=== PATIENT | male | born 1960 | race African-American/Black ===

== ENCOUNTER 2017-04-21 14:23 | Emergency (ER) | payer MEDICAID ==
[~2017-04-21] VITALS: Ht 172.7 cm; Wt 90.7 kg
--- NOTE | 2017-04-21 15:13 | PHYS DOC ---
Past History Past Medical History: Bipolar, COPD, Hypertension Past Surgical History: No Surgical History Additional Smoking Information: 1 PACK DAILY Alcohol Use: Heavy Drug Use: None Adult General Chief Complaint Chief Complaint: SUICDAL IDEATION HPI HPI Patient is a 56 year old male who presents with suicidal ideation and intentional overdose. Patient states that at approximately 3:00 this morning he took a "handful of Seroquel pills" in an attempt to try to kill himself. Patient states that he took the pills with alcohol. Patient states this is the last thing he remembers until approximately 1 hour prior to arrival. Patient states he awoke in his home at that time. The patient then called EMS to be brought to the emergency department for evaluation for suicidal ideation. Patient denies any symptoms currently. Patient does state that he is still having thoughts of wanting to hurt himself and does not feel safe in his own home. The patient has had history of suicidal ideation and suicide attempt and states that he has required admission to a psychiatric facility but states that this was many years ago. The patient states that he feels he would need to be in an inpatient psychiatric setting at this time. Review of Systems Review of Systems Constitutional: Denies fever or chills [] Eyes: Denies change in visual acuity, redness, or eye pain [] HENT: Denies nasal congestion or sore throat [] Respiratory: Denies cough or shortness of breath [] Cardiovascular: Denies chest pain or edema [] GI: Denies abdominal pain, nausea, vomiting, bloody stools or diarrhea [] : Denies dysuria or hematuria [] Musculoskeletal: Denies back pain or joint pain [] Integument: Denies rash or skin lesions [] Neurologic: Denies headache, focal weakness or sensory changes [] Allergies Allergies Allergies Coded Allergies Type Severity Reaction Last Updated Verified No Known Drug Allergies 04/21/17 No Physical Exam Physical Exam Constitutional: Alert, afebrile, no acute distress. [] HENT: Normocephalic, atraumatic, bilateral external ears normal, oropharynx moist, no oral exudates, nose normal. [] Eyes: PERRLA, EOMI, conjunctiva normal, no discharge. [] Neck: Normal range of motion, no tenderness, supple, no stridor. [] Cardiovascular:Heart rate regular rhythm, no murmur [] Lungs & Thorax: Bilateral breath sounds clear to auscultation [] Abdomen: Bowel sounds normal, soft, no tenderness, no masses, no pulsatile masses. [] Skin: Warm, dry, no erythema, no rash. [] Back: No tenderness, no CVA tenderness. [] Extremities: No tenderness, no cyanosis, no clubbing, ROM intact, no edema. [] Neurologic: Alert and oriented X 3, normal motor function, normal sensory function, no focal deficits noted. [] Psychologic: Affect flat, judgement normal,, voices suicidal ideation, denies homicidal ideation, mood depressed. [] Current Patient Data Vital Signs Vital Signs Date Time Temp Pulse Resp B/P (MAP) Pulse Ox O2 Delivery O2 Flow Rate FiO2 04/21/17 14:23 97.9 115 20 91 Room Air Lab Results Laboratory Tests Test 04/21/17 15:15 04/21/17 15:36 White Blood Count 6.5 x10^3/uL Red Blood Count 4.34 x10^6/uL Hemoglobin 14.5 g/dL Hematocrit 42.2 % Mean Corpuscular Volume 97 fL Mean Corpuscular Hemoglobin 33 pg Mean Corpuscular Hemoglobin Concent 34 g/dL Red Cell Distribution Width 14.9 % Platelet Count 173 x10^3/uL Neutrophils (%) (Auto) 58 % Lymphocytes (%) (Auto) 31 % Monocytes (%) (Auto) 9 % Eosinophils (%) (Auto) 1 % Basophils (%) (Auto) 0 % Neutrophils # (Auto) 3.7 x10^3uL Lymphocytes # (Auto) 2.0 x10^3/uL Monocytes # (Auto) 0.6 x10^3/uL Eosinophils # (Auto) 0.1 x10^3/uL Basophils # (Auto) 0.0 x10^3/uL Sodium Level 140 mmol/L Potassium Level 3.3 mmol/L Chloride Level 104 mmol/L Carbon Dioxide Level 28 mmol/L Anion Gap 8 Blood Urea Nitrogen 13 mg/dL Creatinine 1.2 mg/dL Estimated GFR (Cockcroft-Gault) 63.1 BUN/Creatinine Ratio 11 Glucose Level 102 mg/dL Calcium Level 8.4 mg/dL Magnesium Level 2.0 mg/dL Total Bilirubin 0.7 mg/dL Aspartate Amino Transf (AST/SGOT) 39 U/L Alanine Aminotransferase (ALT/SGPT) 40 U/L Alkaline Phosphatase 54 U/L Total Protein 7.0 g/dL Albumin 3.6 g/dL Albumin/Globulin Ratio 1.1 Lipase 144 U/L Salicylates Level 4.7 mg/dL Salicylate Last Dose Date 04/20/17 Salicylate Last Dose Time 0900 Urine Opiates Screen Pos Urine Methadone Screen Neg Acetaminophen Level < 10 mcg/mL Acetaminophen Last Dose Date 04/20/17 Acetaminophen Last Dose Time 0900 Urine Barbiturates Neg Urine Phencyclidine Screen Neg Urine Amphetamine/Methamphetamine Pos Urine Benzodiazepines Screen Neg Urine Cocaine Screen Pos Urine Cannabinoids Screen Neg Ethyl Alcohol Level < 10 mg/dL Urine Ethyl Alcohol Neg Urine Collection Type Unknown Urine Color Diana Urine Clarity Cloudy Urine pH 6.0 Urine Specific [place] >=1.030 Urine Protein 100 mg/dl Urine Glucose (UA) Neg mg/dL Urine Ketones (Stick) 40 mg/dL Urine Blood Neg Urine Nitrite Neg Urine Bilirubin Neg Urine Urobilinogen Dipstick 1 mg/dL Urine Leukocyte Esterase Neg Urine RBC 0 /HPF Urine WBC Occ /HPF Urine Squamous Epithelial Cells Occ /LPF Urine Bacteria 0 /HPF Urine Mucus Slight /LPF Current Medications Medications (Trade) Dose Ordered Sig/Ian Route PRN Reason Start Time Stop Time Status Last Admin Dose Admin Potassium Chloride (Klor-Con) 40 meq 1X ONCE PO 04/21/17 17:30 04/21/17 17:31 DC 04/21/17 17:11 EKG EKG Interpreted by me: Heart rate 113, sinus tachycardia, normal intervals, normal axis, no acute ST/T-wave abnormalities present [] Radiology/Procedures Radiology/Procedures Not performed [] Course & Med Decision Making Course & Med Decision Making Pertinent Labs and Imaging studies reviewed. (See chart for details) Poison control was contacted and their recommendations were observed in the emergency department. Patient did not display any signs of QT prolongation and magnesium levels were normal last patient did not require magnesium supplementation. The patient was found to have mildly decreased potassium which was replaced orally in the emergency department. The patient maintained suicidal ideation and patient was evaluated by telepsychiatry. Patient was interviewed by Dr. Camejo of psychiatry. He recommended that the patient be placed in an inpatient psychiatric facility as he deems the patient high risk for suicide. At this time the patient is awaiting placement in an inpatient psychiatric facility. Care of patient was signed out to Dr. Olivares at [phone]. Dragon Disclaimer Dragon Disclaimer This chart was dictated in whole or in part using Voice Recognition software in a busy, high-work load, and often noisy Emergency Department environment. It may contain unintended and wholly unrecognized errors or omissions. Departure Departure: Impression: Primary Impression: Suicidal ideation Additional Impression: Intentional overdose of drug in tablet form Problem Qualifiers KAY GRUBBS MD Apr 21, 2017 15:13
[2017-04-21 15:33] LABS: BASO % 0 % (0-3); EOS # 0.1 x10^3/uL (0.0-0.7); EOS % 1 % (0-3); HEMATOCRIT 42.2 % (39.0-53.0); HEMOGLOBIN 14.5 g/dL (13.0-17.5); LYMPH % 31 % (24-48); MEAN CORPUSCULAR HEMOGLOBIN 33 pg (25-35); MEAN CORPUSCULAR HGB CONC 34 g/dL (31-37); MEAN CORPUSCULAR VOLUME 97 fL (79-100); MONO # 0.6 x10^3/uL (0.0-1.1); MONO % 9 % (0-9); NEUT # 3.7 x10^3uL (1.8-7.7); NEUT % 58 % (31-73); PLATELET COUNT 173 x10^3/uL (140-400); RED BLOOD COUNT 4.34 x10^6/uL (4.30-5.70); RED CELL DISTRIBUTION WIDTH 14.9 % (11.5-14.5); WHITE BLOOD COUNT 6.5 x10^3/uL (4.0-11.0)
[2017-04-21 15:50] LABS: ACETAMIN < 10 mcg/mL (10-30); ETHANOL < 10 mg/dL (0-10); SALIC 4.7 mg/dL (2.8-20.0)
[2017-04-21 15:51] LABS: ALBUMIN 3.6 g/dL (3.4-5.0); ALBUMIN/GLOBULIN RATIO 1.1 (1.0-1.7); CALCIUM 8.4 mg/dL (8.5-10.1); CREATININE 1.2 mg/dL (0.7-1.3); GFR 63.1; POTASSIUM 3.3 mmol/L (3.5-5.1); TOTAL BILIRUBIN 0.7 mg/dL (0.2-1.0)
--- NOTE | 2017-04-21 16:01 | EKG ---
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
[2017-04-21 16:02] LABS: AMPHETAMINE/METHAMPHETAMINE POS (NEG); BARBITURATES NEG (NEG); BENZODIAZEPINES NEG (NEG); CANNABINOIDS NEG (NEG); COCAINE POS (NEG); METHADONE NEG (NEG); OPIATES POS (NEG); PHENCYCLIDINE NEG (NEG)
[2017-04-21 16:03] LABS: BACTERIA,URINE 0 /HPF (0-FEW); BILIRUBIN,URINE NEG (NEG); CLARITY,URINE CLOUDY; COLOR,URINE AMBER; GLUCOSE,URINE NEG (NEG); NITRITE,URINE NEG (NEG); RBC,URINE 0 /HPF (0-2); SQUAMOUS EPITHELIAL CELL,UR OCC /LPF; UROBILINOGEN,URINE 1 mg/dL (0.2 mg/dL); WBC,URINE OCC /HPF (0-4)
[2017-04-21] MEDS ORDERED: POTASSIUM CHLORIDE 20 MEQ TABLET.ER. PO ONE (17:30)
[2017-04-21] MEDS ORDERED: diphenhydrAMINE HCL 25 MG CAPSULE PO ONE ×2 (20:13→20:30)
[2017-04-21] MEDS ORDERED: diphenhydrAMINE HCL 50 MG CAPSULE PO ONE (20:15)
[2017-04-21 20:50] VITALS: BP 119/80
== END 2017-04-21 21:56 | disposition short-term general hospital (02) ==
LOC: ER 14:23 → EDBD 14:23 → ER 21:56
DX: T43.592A Poisoning by other antipsychotics and neuroleptics, intentional self-harm, initial encounter (principal); I10 Essential (primary) hypertension; J44.9 Chronic obstructive pulmonary disease, unspecified; F31.9 Bipolar disorder, unspecified; F17.200 Nicotine dependence, unspecified, uncomplicated; F10.10 Alcohol abuse, uncomplicated; Y92.89 Other specified places as the place of occurrence of the external cause
CPT/HCPCS: 36415; 80053; 80307; 81001; 83690; 83735; 85027; 93005; 99285; G0480; Q0163; G0479

== ENCOUNTER 2017-07-02 19:02 | Inpatient (IN) | payer MEDICAID, OTHER ==
[~2017-07-02] VITALS: Ht 172.7 cm; Wt 102.1 kg
--- NOTE | 2017-07-02 20:05 | PHYS DOC ---
Past History Past Medical History: Anxiety, Bipolar, COPD, Depression, Hypertension, Schizophrenia Past Surgical History: No Surgical History Alcohol Use: Heavy Drug Use: Cocaine, Marijuana Adult General Chief Complaint Chief Complaint: SUICDAL IDEATION HPI HPI Patient is a 57 year old male who presents with complaint of suicidal ideation. Patient states that he has been having suicidal thoughts over the past 3 days. The patient states that he started having thoughts of overdosing on lithium today which would be his plan to kill himself. Patient stated that he decided to call the psychiatric hotline instead and he was told come to the emergency department for evaluation. Patient came by private vehicle and checked into the emergency department by himself. Patient states that he has had history of depression and suicidal thoughts. Patient states he was recently hospitalized 1 month ago for the same. The patient denies taking any toxic substances or causing any self injury at this time and patient also denies any homicidal ideation. The patient is seeking help from the emergency department for his suicidal thoughts. Review of Systems Review of Systems Constitutional: Denies fever or chills [] Eyes: Denies change in visual acuity, redness, or eye pain [] HENT: Denies nasal congestion or sore throat [] Respiratory: Denies cough or shortness of breath [] Cardiovascular: Denies chest pain or edema[] GI: Denies abdominal pain, nausea, vomiting, bloody stools or diarrhea [] : Denies dysuria or hematuria [] Musculoskeletal: Denies back pain or joint pain [] Integument: Denies rash or skin lesions [] Neurologic: Denies headache, focal weakness or sensory changes [] Allergies Allergies Allergies Coded Allergies Type Severity Reaction Last Updated Verified No Known Drug Allergies 04/21/17 No Physical Exam Physical Exam Constitutional: Well developed, well nourished, no acute distress, non-toxic appearance. [] HENT: Normocephalic, atraumatic, bilateral external ears normal, oropharynx moist, no oral exudates, nose normal. [] Eyes: PERRLA, EOMI, conjunctiva normal, no discharge. [] Neck: Normal range of motion, no tenderness, supple, no stridor. [] Cardiovascular:Heart rate regular rhythm, no murmur [] Lungs & Thorax: Bilateral breath sounds clear to auscultation [] Abdomen: Bowel sounds normal, soft, no tenderness, no masses, no pulsatile masses. [] Skin: Warm, dry, no erythema, no rash. [] Back: No tenderness, no CVA tenderness. [] Extremities: No tenderness, no cyanosis, no clubbing, ROM intact, no edema. [] Neurologic: Alert and oriented X 3, normal motor function, normal sensory function, no focal deficits noted. [] Psychologic: Affect flat, judgement normal, mood depressed, voices suicidal ideation, negative for homicidal ideation. [] Current Patient Data Vital Signs Vital Signs Date Time Temp Pulse Resp B/P (MAP) Pulse Ox O2 Delivery O2 Flow Rate FiO2 07/02/17 19:02 97.6 96 16 96 Room Air Lab Results Laboratory Tests Test 07/02/17 19:24 07/02/17 19:35 Urine Collection Type Unknown Urine Color Yellow Urine Clarity Clear Urine pH 5.5 Urine Specific [place] 1.025 Urine Protein Neg Urine Glucose (UA) Neg mg/dL Urine Ketones (Stick) Neg mg/dL Urine Blood Trace Urine Nitrite Neg Urine Bilirubin Neg Urine Urobilinogen Dipstick 4 mg/dL Urine Leukocyte Esterase Neg Urine RBC 1-2 /HPF Urine WBC 1-4 /HPF Urine Squamous Epithelial Cells Few /LPF Urine Bacteria 0 /HPF Urine Mucus Mod /LPF Urine Opiates Screen Pos Urine Methadone Screen Neg Urine Barbiturates Neg Urine Phencyclidine Screen Neg Urine Amphetamine/Methamphetamine Neg Urine Benzodiazepines Screen Neg Urine Cocaine Screen Pos Urine Cannabinoids Screen Neg Urine Ethyl Alcohol Neg White Blood Count 7.5 x10^3/uL Red Blood Count 4.04 x10^6/uL Hemoglobin 13.9 g/dL Hematocrit 38.9 % Mean Corpuscular Volume 96 fL Mean Corpuscular Hemoglobin 34 pg Mean Corpuscular Hemoglobin Concent 36 g/dL Red Cell Distribution Width 14.0 % Platelet Count 279 x10^3/uL Neutrophils (%) (Auto) 39 % Lymphocytes (%) (Auto) 50 % Monocytes (%) (Auto) 9 % Eosinophils (%) (Auto) 2 % Basophils (%) (Auto) 1 % Neutrophils # (Auto) 2.9 x10^3uL Lymphocytes # (Auto) 3.7 x10^3/uL Monocytes # (Auto) 0.7 x10^3/uL Eosinophils # (Auto) 0.1 x10^3/uL Basophils # (Auto) 0.0 x10^3/uL Prothrombin Time 9.8 SEC Prothromb Time International Ratio 1.0 Activated Partial Thromboplast Time 24 SEC Sodium Level 140 mmol/L Potassium Level 3.0 mmol/L Chloride Level 105 mmol/L Carbon Dioxide Level 25 mmol/L Anion Gap 10 Blood Urea Nitrogen 14 mg/dL Creatinine 1.2 mg/dL Estimated GFR (Cockcroft-Gault) 76.1 BUN/Creatinine Ratio 12 Glucose Level 110 mg/dL Calcium Level 8.6 mg/dL Magnesium Level 2.2 mg/dL Total Bilirubin 0.3 mg/dL Aspartate Amino Transf (AST/SGOT) 25 U/L Alanine Aminotransferase (ALT/SGPT) 30 U/L Alkaline Phosphatase 57 U/L Total Protein 6.7 g/dL Albumin 3.4 g/dL Albumin/Globulin Ratio 1.0 Lipase 207 U/L Salicylates Level 3.6 mg/dL Salicylate Last Dose Date 07/02/17 Salicylate Last Dose Time 0800 Acetaminophen Level < 2 mcg/mL Acetaminophen Last Dose Date 07/02/17 Acetaminophen Last Dose Time 0800 Ethyl Alcohol Level < 10 mg/dL Current Medications Medications (Trade) Dose Ordered Sig/Ian Route PRN Reason Start Time Stop Time Status Last Admin Dose Admin Potassium Chloride (Klor-Con) 40 meq 1X ONCE PO 07/02/17 21:00 07/02/17 21:01 DC 07/02/17 21:00 EKG EKG Interpreted by me: Heart rate 90, sinus rhythm, normal intervals, normal axis, no acute ST/T-wave abnormalities present[] Radiology/Procedures Radiology/Procedures Not performed.[] Course & Med Decision Making Course & Med Decision Making Pertinent Labs and Imaging studies reviewed. (See chart for details) Patient medically cleared for psychiatric evaluation. The patient was noted to have a low potassium level which was supplemented orally in the emergency department. Patient was evaluated by Dr. Woodruff through tele-psychiatry consult. After her evaluation, she recommended that the patient be an involuntary admission to a psychiatric facility as she is concerned about his current state and risk for completion of suicide. Multiple facilities in the area were contacted but did not have any available beds for the next 8-12 hours. The patient thus will be admitted to the hospital at this time pending transfer and placement in a psychiatric facility. I spoke with Dr. Arriaza who accepted care patient. The patient will be admitted to ICU for continued monitoring. Dragon Disclaimer Dragon Disclaimer This chart was dictated in whole or in part using Voice Recognition software in a busy, high-work load, and often noisy Emergency Department environment. It may contain unintended and wholly unrecognized errors or omissions. Departure Departure: Impression: Primary Impression: Suicidal ideation Disposition: ADMITTED INPATIENT Admitting Physician: Yrn Arriaza Condition: GUARDED Referrals: PCP,NO (PCP) KAY GRUBBS MD Jul 02, 2017 20:05
[2017-07-02 20:08] LABS: BASO % 1 % (0-3); EOS # 0.1 x10^3/uL (0.0-0.7); EOS % 2 % (0-3); HEMATOCRIT 38.9 % (39.0-53.0); HEMOGLOBIN 13.9 g/dL (13.0-17.5); LYMPH # 3.7 x10^3/uL (1.0-4.8); LYMPH % 50 % (24-48); MEAN CORPUSCULAR HEMOGLOBIN 34 pg (25-35); MEAN CORPUSCULAR HGB CONC 36 g/dL (31-37); MEAN CORPUSCULAR VOLUME 96 fL (79-100); MONO # 0.7 x10^3/uL (0.0-1.1); MONO % 9 % (0-9); NEUT # 2.9 x10^3uL (1.8-7.7); NEUT % 39 % (31-73); PLATELET COUNT 279 x10^3/uL (140-400); RED BLOOD COUNT 4.04 x10^6/uL (4.30-5.70); WHITE BLOOD COUNT 7.5 x10^3/uL (4.0-11.0)
[2017-07-02 20:13] LABS: AMPHETAMINE/METHAMPHETAMINE NEG (NEG); BARBITURATES NEG (NEG); BENZODIAZEPINES NEG (NEG); CANNABINOIDS NEG (NEG); COCAINE POS (NEG); METHADONE NEG (NEG); OPIATES POS (NEG); PHENCYCLIDINE NEG (NEG)
[2017-07-02 20:17] LABS: ALBUMIN 3.4 g/dL (3.4-5.0); CALCIUM 8.6 mg/dL (8.5-10.1); CREATININE 1.2 mg/dL (0.7-1.3); GFR 76.1; MAGNESIUM 2.2 mg/dL (1.8-2.4); TOTAL BILIRUBIN 0.3 mg/dL (0.2-1.0); TOTAL PROTEIN 6.7 g/dL (6.4-8.2)
[2017-07-02 20:18] LABS: ACETAMIN < 2 mcg/mL (10-30); ETHANOL < 10 mg/dL (0-10); SALIC 3.6 mg/dL (2.8-20.0)
[2017-07-02 20:40] LABS: BACTERIA,URINE 0 /HPF (0-FEW); BILIRUBIN,URINE NEG (NEG); CLARITY,URINE CLEAR; COLOR,URINE YELLOW; GLUCOSE,URINE NEG (NEG); NITRITE,URINE NEG (NEG); SQUAMOUS EPITHELIAL CELL,UR FEW /LPF; UROBILINOGEN,URINE 4 mg/dL (0.2 mg/dL)
[2017-07-02] MEDS ORDERED: POTASSIUM CHLORIDE 20 MEQ TABLET.ER. PO ONE (21:00)
[2017-07-02 22:17] VITALS: BP 130/82
[2017-07-02] MEDS: QUEtiapine 100 MG TABLET. PO SCH (23:30)
[2017-07-03] VITALS (12 sets, daily range): BP systolic 101–135; BP diastolic 64–88
[2017-07-03] MEDS ORDERED: QUET300T5 PO (05:40)
[2017-07-03] MEDS ORDERED: METO50TA2 PO (05:42)
[2017-07-03] MEDS ORDERED: LITH600C PO (05:42)
[2017-07-03 09:30] LABS: CALCIUM 8.7 mg/dL (8.5-10.1); CREATININE 1.1 mg/dL (0.7-1.3); GFR 84.1; POTASSIUM 3.4 mmol/L (3.5-5.1)
[2017-07-03] MEDS ORDERED: POTASSIUM CHLORIDE 20 MEQ TABLET.ER. PO ONE (12:00)
[2017-07-03] MEDS ORDERED: METOPROLOL TART IMMED RELEASE 50 MG TABLET PO SCH (12:30)
[2017-07-03] MEDS: DOCUSATE SODIUM 100 MG CAPSULE PO SCH ×2 (12:44→20:56)
[2017-07-03] MEDS: NICOTINE 21MG PATCH. TD SCH (12:45)
[2017-07-03] MEDS: LITHIUM CARBONATE 300 MG TABLET PO SCH ×2 (13:47→20:57)
[2017-07-03] MEDS ORDERED: IPRATRPIUM/ALBUTEROL 0.5/2.5MG 3 ML NEBU. NEB SCH (14:00)
[2017-07-03 14:41] LABS: LI < 0.1 mmol/L (0.6-1.2)
--- NOTE | 2017-07-03 15:05 | HP ---
ADMIT DATE: 07/02/2017 REASON FOR ADMISSION: Suicidal ideation. HISTORY OF PRESENT ILLNESS: This is a 57-year-old -[place] male who presented to the Emergency Room with suicidal ideation and plan to overdose on lithium. He has a long history of mental illness with over 10 psychiatric admissions with at least 7 suicide attempts by overdosing, cutting his wrist, walking in traffic. At this time, he states he is going to overdose on lithium. He states he is "tired of living and feeling a lot of pressure." He lives [place] the [facility] [place] in an apartment and does not feel safe there. He states there is a lot going on there and he does not feel safe there. PAST MEDICAL HISTORY: Hypertension; COPD; bipolar disorder; schizoaffective disorder; posttraumatic stress disorder, states from being in the ; anxiety; agitation; constipation; substance abuse, cocaine, marijuana, also has chronic tobacco use disorder and intermittent alcohol use. MEDICATIONS: The patient is somewhat vague about what he takes, but went over the medications myself with him and the discharge medications from the hospitalization at [facility]. He is supposed to be taking Minipress 3 mg at bedtime, but does not take it regularly, this is for nightmares. He has a prescription for tramadol 50 mg every 6 hours, takes it off and on. He has been prescribed by the [facility], Haldol, unknown dose and Ativan 0.5 mg, which he takes off and on. He is supposed to be taking Seroquel 200 mg b.i.d., which he does not take and Seroquel 900 mg at bedtime, which he does take. He is also on albuterol inhaler and Combivent inhaler and also Colace and lithium 600 mg every 12 hours, metoprolol 50 mg b.i.d. SOCIAL HISTORY: He lives alone. He is unmarried. He has no children. He smokes 1 pack per day, drinks 4 times a week, does use cocaine intermittently and has marijuana use in the past. His drug screen was also positive for opiates and he says that this is prescribed by the [facility] [employer]. REVIEW OF SYSTEMS: Positive for occasional constipation. No weight loss. No sore throat. No fever. No problems with urinating. Some anxiety, some agitations. OBJECTIVE: VITAL SIGNS: Blood pressure 134/82, pulse 77, temperature 97.4, pulse ox 98% on room air. Height 68 inches, weight 224.25 pounds. GENERAL: The patient is 57-year-old, in no acute distress. He was calm and cooperative throughout the exam. He speaks in a very low mumbling type tone. His hearing is adequate. HEENT: His pupils were normal. Eyes were normal. Nose is patent. Throat clear. NECK: Supple. LUNGS: Clear. CARDIOVASCULAR: Regular rhythm and rate. ABDOMEN: Soft, nontender. EXTREMITIES: Without edema. NEUROLOGIC: He is alert and oriented, calm and cooperative. Mood is somewhat flat. His affect is somewhat flat and has depressive habitus. LABORATORY DATA: Potassium is 3.0. Normal CBC. Nonfasting glucose is 129. ASSESSMENT: 1. Major depressive disorder. 2. Suicidal ideation with plan. 3. History in the past of multiple suicide attempts and hospitalizations. 4. Schizoaffective disorder. 5. Bipolar disorder. 6. Agitation. 7. Tobacco use disorder. 8. Substance abuse. ____ Urine screen positive for cocaine. 9. Chronic obstructive pulmonary disease. PLAN: Replacing his potassium, added in the medications as best as the history could allow as he was somewhat vague about what he takes when he does not take, will only put in 1 mg of Minipress as he has not been taking this regularly and he has been seen by tele-psych as well as the ____ [facility] who also recommends inpatient. RICH FARRIS DO DR: BRYAN/rachel JOB#: [id number] / [id number]
[2017-07-03] MEDS ORDERED: ASPI-612 PO (15:33)
[2017-07-03] MEDS ORDERED: ALBU8.5H8 INH (15:33)
[2017-07-03] MEDS ORDERED: LITH300C PO (15:33)
[2017-07-03] MEDS ORDERED: LORA0.5T PO (15:33)
[2017-07-03] MEDS ORDERED: HYDR50TA PO (15:33)
[2017-07-03] MEDS ORDERED: HALO5TAB PO (15:33)
[2017-07-03] MEDS ORDERED: BUSP15TA PO (15:33)
[2017-07-03] MEDS ORDERED: ISON300T3 PO (15:33)
[2017-07-03] MEDS ORDERED: ATOR40TA59 PO (15:33)
[2017-07-03] MEDS ORDERED: OLOD4MIS2 IH (16:04)
[2017-07-03] MEDS ORDERED: MOME220A IH (16:04)
[2017-07-03] MEDS ORDERED: PRAZ2CAP2 PO (16:04)
[2017-07-03] MEDS ORDERED: NIFE30TA9 PO (16:04)
[2017-07-03] MEDS ORDERED: ACET325T9 PO (16:04)
[2017-07-03] MEDS ORDERED: SILD50TA PO (16:04)
[2017-07-03] MEDS ORDERED: OMEP20CA9 PO (16:04)
[2017-07-03] MEDS ORDERED: PYRI50TA8 PO (16:04)
[2017-07-03] MEDS ORDERED: TIOT18CA IH (16:04)
[2017-07-03] MEDS ORDERED: ACETAMINOPHEN 325 MG TABLET PO PRN (16:45)
[2017-07-03] MEDS ORDERED: ALBUTEROL SULFATE 8GM INHALER. INH PRN (16:45)
[2017-07-03] MEDS ORDERED: SILDENAFIL CITRATE PO SCH (16:45)
[2017-07-03] MEDS ORDERED: HALOPERIDOL 5 MG TABLET PO PRN (16:45)
[2017-07-03] MEDS ORDERED: LORazepam 0.5 MG TABLET PO PRN (16:45)
[2017-07-03] MEDS ORDERED: hydrOXYzine PAMOATE 25 MG CAPSULE PO PRN (17:00)
[2017-07-03] MEDS ORDERED: ALBUTEROL SULFATE 2.5 MG/3 ML NEBU. NEB PRN (17:00)
[2017-07-03] MEDS: busPIRone 15 MG TABLET. PO SCH (20:56)
[2017-07-03] MEDS: QUEtiapine 100 MG TABLET. PO SCH (20:56)
[2017-07-03] MEDS: ATORVASTATIN CALCIUM 20 MG TABLET PO SCH (20:56)
[2017-07-03] MEDS ORDERED: QUETIAPINE FUMARATE PO SCH (21:00)
[2017-07-03] MEDS ORDERED: PRAZOSIN 1 MG CAPSULE. PO SCH ×2 (21:00)
[2017-07-03] MEDS ORDERED: LITHIUM CARBONATE 300 MG TABLET PO SCH (21:00)
[2017-07-03] MEDS: IPRATRPIUM/ALBUTEROL 0.5/2.5MG 3 ML NEBU. NEB SCH (22:22)
[2017-07-04] MEDS: IPRATRPIUM/ALBUTEROL 0.5/2.5MG 3 ML NEBU. NEB SCH ×4 (05:32→21:36)
[2017-07-04 05:42] VITALS: BP 130/84
[2017-07-04 05:50] LABS: BASO % 1 % (0-3); EOS # 0.1 x10^3/uL (0.0-0.7); EOS % 2 % (0-3); HEMATOCRIT 42.2 % (39.0-53.0); HEMOGLOBIN 14.5 g/dL (13.0-17.5); LYMPH # 3.2 x10^3/uL (1.0-4.8); LYMPH % 52 % (24-48); MEAN CORPUSCULAR HEMOGLOBIN 33 pg (25-35); MEAN CORPUSCULAR HGB CONC 35 g/dL (31-37); MEAN CORPUSCULAR VOLUME 97 fL (79-100); MONO # 0.4 x10^3/uL (0.0-1.1); MONO % 7 % (0-9); NEUT # 2.3 x10^3uL (1.8-7.7); NEUT % 38 % (31-73); PLATELET COUNT 269 x10^3/uL (140-400); RED BLOOD COUNT 4.36 x10^6/uL (4.30-5.70); RED CELL DISTRIBUTION WIDTH 13.7 % (11.5-14.5); WHITE BLOOD COUNT 6.1 x10^3/uL (4.0-11.0)
[2017-07-04 06:00] LABS: ALBUMIN 3.2 g/dL (3.4-5.0); CALCIUM 8.6 mg/dL (8.5-10.1); GFR 93.9; POTASSIUM 4.1 mmol/L (3.5-5.1); TOTAL BILIRUBIN 0.3 mg/dL (0.2-1.0); TOTAL PROTEIN 6.5 g/dL (6.4-8.2)
[2017-07-04] MEDS: PANTOPRAZOLE 40 MG TABLET. PO SCH (08:42)
[2017-07-04] MEDS: DOCUSATE SODIUM 100 MG CAPSULE PO SCH ×2 (08:42→20:20)
[2017-07-04] MEDS: ASPIRIN ENTERIC COATED 81 MG TABLET.DR. PO SCH (08:42)
[2017-07-04] MEDS: busPIRone 15 MG TABLET. PO SCH ×2 (08:42→20:18)
[2017-07-04] MEDS: PYRIDOXINE 50 MG TABLET. PO SCH (08:42)
[2017-07-04] MEDS: NICOTINE 21MG PATCH. TD SCH (08:43)
[2017-07-04] MEDS: LITHIUM CARBONATE 300 MG TABLET PO SCH ×2 (08:43→20:19)
[2017-07-04] MEDS: NON FORMULARY ITEM (Olodaterol HCl (Striverdi Respimat) 2 PUFF) IH SCH (08:54)
[2017-07-04] MEDS ORDERED: NON FORMULARY ITEM (Tiotropium Bromide (Spiriva) 2 PUFF) IH SCH (09:00)
[2017-07-04] MEDS ORDERED: FLUTICASONE 50MCG/NASAL SPRAY 16GM BOTTLE. NS SCH (09:00)
[2017-07-04 10:17] VITALS: BP 134/54
--- NOTE | 2017-07-04 10:40 | EKG ---
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
[2017-07-04 17:18] VITALS: BP 138/87
--- NOTE | 2017-07-04 18:48 | PDOC ---
Exam Avtar Demential Exam: Avtar Note: Please also refer to the separate dictated note~for this date of service dictated separately.~Patient seen individually. Discussed the patient with Nursing staff reviewed the chart.~Reviewed interim history and current functioning. Reviewed vital signs,~Labs/ Radiology~and current medications noted below. Continue current treatment with the changes noted in the dictated addendum note Assessment: Vital Signs: Vital Signs Date Time Temp Pulse Resp B/P (MAP) Pulse Ox O2 Delivery O2 Flow Rate FiO2 07/04/17 17:18 83 18 138/87 (104) 95 Room Air 07/04/17 10:17 98.3 I&O Intake and Output 07/05/17 07:00 Intake Total 1320 ml Balance 1320 ml Intake Oral 1320 ml # Voids 1 Labs: Laboratory Tests Test 07/04/17 05:39 White Blood Count 6.1 x10^3/uL (4.0-11.0) Red Blood Count 4.36 x10^6/uL (4.30-5.70) Hemoglobin 14.5 g/dL (13.0-17.5) Hematocrit 42.2 % (39.0-53.0) Mean Corpuscular Volume 97 fL (79-100) Mean Corpuscular Hemoglobin 33 pg (25-35) Mean Corpuscular Hemoglobin Concent 35 g/dL (31-37) Red Cell Distribution Width 13.7 % (11.5-14.5) Platelet Count 269 x10^3/uL (140-400) Neutrophils (%) (Auto) 38 % (31-73) Lymphocytes (%) (Auto) 52 % (24-48) H Monocytes (%) (Auto) 7 % (0-9) Eosinophils (%) (Auto) 2 % (0-3) Basophils (%) (Auto) 1 % (0-3) Neutrophils # (Auto) 2.3 x10^3uL (1.8-7.7) Lymphocytes # (Auto) 3.2 x10^3/uL (1.0-4.8) Monocytes # (Auto) 0.4 x10^3/uL (0.0-1.1) Eosinophils # (Auto) 0.1 x10^3/uL (0.0-0.7) Basophils # (Auto) 0.0 x10^3/uL (0.0-0.2) Sodium Level 142 mmol/L (136-145) Potassium Level 4.1 mmol/L (3.5-5.1) Chloride Level 109 mmol/L (98-107) H Carbon Dioxide Level 25 mmol/L (21-32) Anion Gap 8 (6-14) Blood Urea Nitrogen 10 mg/dL (8-26) Creatinine 1.0 mg/dL (0.7-1.3) Estimated GFR (Cockcroft-Gault) 93.9 BUN/Creatinine Ratio 10 (6-20) Glucose Level 105 mg/dL (70-99) H Calcium Level 8.6 mg/dL (8.5-10.1) Total Bilirubin 0.3 mg/dL (0.2-1.0) Aspartate Amino Transferase (AST) 17 U/L (15-37) Alanine Aminotransferase (ALT) 25 U/L (16-63) Alkaline Phosphatase 54 U/L (46-116) Total Protein 6.5 g/dL (6.4-8.2) Albumin 3.2 g/dL (3.4-5.0) L Albumin/Globulin Ratio 1.0 (1.0-1.7) Current Medications: Meds: Current Medications Potassium Chloride (Klor-Con) 40 meq 1X ONCE PO Last administered on 21:00; Start 07/02/17 at 21:00; Stop 07/02/17 at 21:01; Status DC Quetiapine Fumarate (SEROquel) 900 mg HS PO Last administered on 07/03/17 20: 56; Start 07/03/17 at 00:00 Potassium Chloride (Klor-Con) 40 meq 1X ONCE PO Last administered on 12:11; Start 07/03/17 at 12:00; Stop 07/03/17 at 12:01; Status DC Metoprolol Tartrate (Lopressor) 50 mg BID PO Last administered on 07/03/17 12 :44; Start 07/03/17 at 12:30; Stop 07/03/17 at 16:37; Status DC [place] Carbonate 300 mg BID PO Last administered on 07/04/17 08:43; Start 07/03/17 at 12:30 Non-Formulary Medication 3 tab QHS PO ; Start 07/03/17 at 21:00; Status UNV Nicotine (Nicoderm Cq 21mg) 1 patch DAILY TD Last administered on 07/04/17 08 :43; Start 07/03/17 at 12:30 Albuterol/ Ipratropium (Duoneb) 3 ml TID NEB Last administered on 07/03/17 15 :26; Start 07/03/17 at 14:00; Stop 07/03/17 at 16:58; Status DC Prazosin HCl (Minipress) 1 mg HS PO ; Start 07/03/17 at 21:00; Stop 07/03/17 at 21:00; Status DC Docusate Sodium (Colace) 100 mg BID PO Last administered on 07/04/17 08:42; Start 07/03/17 at 12:30 Acetaminophen (Tylenol) 650 mg PRN Q8HRS PRN PO PAIN / TEMP; Start 07/03/17 at 16:45 Albuterol Sulfate (Ventolin Hfa) 2 puff PRN Q6HRS PRN INH SHORTNESS OF BREATH; Start 07/03/17 at 16:45; Stop 07/03/17 at 16:56; Status DC Aspirin (Aspirin Enteric Coated) 81 mg DAILY PO Last administered on 08:42; Start 07/04/17 at 09:00 Buspirone HCl (Buspar) 15 mg BID PO Last administered on 07/04/17 08:42; Start 07/03/17 at 21:00 Haloperidol (Haldol) 5 mg PRN Q6HRS PRN PO AGITATION; Start 07/03/17 at 16:45 Lorazepam (Ativan) 0.5 mg PRN BID PRN PO ANXIETY / AGITATION; Start 07/03/17 at 16:45 Pyridoxine HCl (Vitamin B-6) 50 mg DAILY PO Last administered on 07/04/17 08: 42; Start 07/04/17 at 09:00 Atorvastatin Calcium (Lipitor) 20 mg QHS PO Last administered on 07/03/17 20: 56; Start 07/03/17 at 21:00 Hydroxyzine Pamoate (Vistaril) 50 mg PRN Q4HRS PRN PO CONGESTION; Start at 17:00 [place] Carbonate 300 mg BID PO ; Start 07/03/17 at 21:00; Stop 07/03/17 at 21 :00; Status DC Fluticasone Propionate (Flonase) 2 spray DAILY NS Last administered on 08:43; Start 07/04/17 at 09:00; Stop 07/04/17 at 15:58; Status DC Nifedipine (Procardia Xl) 30 mg DAILY PO Last administered on 07/04/17 08:43 ; Start 07/04/17 at 09:00 Non-Formulary Medication 2 puff DAILY IH ; Start 07/04/17 at 09:00; Status UNV Pantoprazole Sodium (Protonix) 40 mg DAILYAC PO Last administered on 08:42; Start 07/04/17 at 07:30 Prazosin HCl (Minipress) 2 mg QHS PO Last administered on 07/03/17 20:56; Start 07/03/17 at 21:00; Stop 07/04/17 at 18:47; Status DC Non-Formulary Medication 0.5 tab UD PO ; Start 07/03/17 at 16:45; Stop at 07:13; Status DC Non-Formulary Medication 2 puff DAILY IH ; Start 07/04/17 at 09:00; Stop 07/04 at 09:00; Status DC Albuterol Sulfate (Ventolin) 2.5 mg PRN Q6HRS PRN NEB SHORTNESS OF BREATH; Start 07/03/17 at 17:00 Albuterol/ Ipratropium (Duoneb) 3 ml RTQID NEB Last administered on 07/04/17 16:37; Start 07/03/17 at 20:00 Fluticasone Propionate (Flonase) 2 spray DAILY NS ; Start 07/04/17 at 15:58 Prazosin HCl (Minipress) 4 mg QHS PO ; Start 07/04/17 at 21:00; Status UNV Active Scripts Active Reported Tylenol (Acetaminophen) 325 Mg Tablet 2 Tab PO PRN Q8HRS PRN LAST DOSE GIVEN: DATE: TIME: NEXT DOSE DUE: DATE: TIME: Spiriva (Tiotropium [place]) 18 Mcg Cap.w.dev 2 Puff IH DAILY LAST DOSE GIVEN: DATE: TIME: NEXT DOSE DUE: DATE: TIME: Viagra (Sildenafil Citrate) 50 Mg Tablet 0.5 Tab PO UD LAST DOSE GIVEN: DATE: TIME: NEXT DOSE DUE: DATE: TIME: Pyridoxine Hcl 50 Mg Tablet 50 Mg PO DAILY LAST DOSE GIVEN: DATE: TIME: NEXT DOSE DUE: DATE: TIME: Prazosin Hcl 2 Mg Capsule 2 Cap PO QHS LAST DOSE GIVEN: DATE: TIME: NEXT DOSE DUE: DATE: TIME: Omeprazole 20 Mg Capsule.dr 1 Cap PO DAILY LAST DOSE GIVEN: DATE: TIME: NEXT DOSE DUE: DATE: TIME: [place] Respimat (Olodaterol HCl) 4 Gm Mist.inhal 2 Puff IH DAILY LAST DOSE GIVEN: DATE: TIME: NEXT DOSE DUE: DATE: TIME: Nifedipine Er (Nifedipine) 30 Mg Tablet.er 1 Tab PO DAILY LAST DOSE GIVEN: DATE: TIME: NEXT DOSE DUE: DATE: TIME: Asmanex (Mometasone Furoate) 220 Mcg Aer.pow.ba 1 Puff IH BID LAST DOSE GIVEN: DATE: TIME: NEXT DOSE DUE: DATE: TIME: Lorazepam 0.5 Mg Tablet 1 Tab PO PRN BID PRN LAST DOSE GIVEN: DATE: TIME: NEXT DOSE DUE: DATE: TIME: Isoniazid 300 Mg Tablet 300 Mg PO DAILY LAST DOSE GIVEN: DATE: TIME: NEXT DOSE DUE: DATE: TIME: Hydroxyzine Hcl 50 Mg Tablet 50 Mg PO PRN Q4HRS PRN LAST DOSE GIVEN: DATE: TIME: NEXT DOSE DUE: DATE: TIME: Haloperidol 5 Mg Tablet 5 Mg PO PRN Q6HRS PRN LAST DOSE GIVEN: DATE: TIME: NEXT DOSE DUE: DATE: TIME: Buspirone Hcl 15 Mg Tablet 1 Tab PO BID LAST DOSE GIVEN: DATE: TIME: NEXT DOSE DUE: DATE: TIME: Atorvastatin Calcium 40 Mg Tablet 0.5 Tab PO QHS LAST DOSE GIVEN: DATE: TIME: NEXT DOSE DUE: DATE: TIME: Aspirin Ec (Aspirin) 81 Mg Tablet.dr 1 Tab PO DAILY LAST DOSE GIVEN: DATE: TIME: NEXT DOSE DUE: DATE: TIME: Proair Hfa Inhaler (Albuterol Sulfate) 8.5 Gm Hfa.aer.ad 2 Puff INH PRN Q6HRS PRN LAST DOSE GIVEN: DATE: TIME: NEXT DOSE DUE: DATE: TIME: [place] Carbonate 300 Mg Capsule 1 Cap PO BID LAST DOSE GIVEN: DATE: TIME: NEXT DOSE DUE: DATE: TIME: Metoprolol Tartrate 50 Mg Tablet 0.5 Tab PO BID LAST DOSE GIVEN: DATE: TIME: NEXT DOSE DUE: DATE: TIME: Seroquel (Quetiapine Fumarate) 300 Mg Tablet 3 Tab PO QHS LAST DOSE GIVEN: DATE: TIME: NEXT DOSE DUE: DATE: TIME: Diagnosis: Problems: (1) Schizoaffective disorder, chronic condition with acute exacerbation (2) Impulse control disorder (3) Suicidal ideation (4) Bipolar affective, mixed, sev w/ psych (5) Anxiety disorder CLAUDIA FALL MD Jul 04, 2017 18:48
[2017-07-04 19:55] VITALS: BP 127/88
[2017-07-04] MEDS: QUEtiapine 100 MG TABLET. PO SCH (20:18)
[2017-07-04] MEDS: ATORVASTATIN CALCIUM 20 MG TABLET PO SCH (20:19)
[2017-07-04] MEDS: PRAZOSIN 1 MG CAPSULE. PO SCH (20:19)
[2017-07-04 20:24] VITALS: BP 138/90
[2017-07-04 22:57] VITALS: BP 134/54
--- NOTE | 2017-07-05 01:33 | PN ---
DATE: PROBLEMS: 1. Schizoaffective disorder. 2. Suicidal ideation with plan. 3. Hypertension. 4. History of multiple suicide attempts and hospitalizations in the past. 5. Bipolar disorder. 6. Agitation. 7. Tobacco use disorder. 8. Substance abuse, positive for cocaine. 9. COPD. 10. Hypokalemia, it is resolved. A 57-year-old who was admitted with suicidal ideation. So far no beds are available at the places we have queried. We are still waiting and he still desires to be admitted. He is taking all his medications as directed and remains one on one observation. OBJECTIVE: VITAL SIGNS: Blood pressure 134/54, pulse 70, respirations 19, pulse ox 97% on room air, temperature 98.3. Labs fairly unremarkable today. CBC is normal. PLAN: Await bed placement. RICH FARRIS DO DR: BRYAN/rachel JOB#: [id number] / [id number]
[2017-07-05 05:39] VITALS: BP 121/77
[2017-07-05 06:40] LABS: BASO % 1 % (0-3); EOS # 0.1 x10^3/uL (0.0-0.7); EOS % 2 % (0-3); HEMATOCRIT 41.7 % (39.0-53.0); HEMOGLOBIN 14.5 g/dL (13.0-17.5); LYMPH # 2.8 x10^3/uL (1.0-4.8); LYMPH % 40 % (24-48); MEAN CORPUSCULAR HEMOGLOBIN 34 pg (25-35); MEAN CORPUSCULAR HGB CONC 35 g/dL (31-37); MEAN CORPUSCULAR VOLUME 97 fL (79-100); MONO # 0.6 x10^3/uL (0.0-1.1); MONO % 8 % (0-9); NEUT # 3.4 x10^3uL (1.8-7.7); NEUT % 50 % (31-73); PLATELET COUNT 281 x10^3/uL (140-400); RED BLOOD COUNT 4.32 x10^6/uL (4.30-5.70); RED CELL DISTRIBUTION WIDTH 13.6 % (11.5-14.5); WHITE BLOOD COUNT 6.9 x10^3/uL (4.0-11.0)
[2017-07-05 06:47] LABS: CALCIUM 8.6 mg/dL (8.5-10.1); GFR 93.9; POTASSIUM 3.8 mmol/L (3.5-5.1)
[2017-07-05] MEDS: IPRATRPIUM/ALBUTEROL 0.5/2.5MG 3 ML NEBU. NEB SCH ×4 (08:00→20:00)
[2017-07-05] MEDS: NON FORMULARY ITEM (Olodaterol HCl (Striverdi Respimat) 2 PUFF) IH SCH (09:00)
[2017-07-05] MEDS: DOCUSATE SODIUM 100 MG CAPSULE PO SCH ×2 (09:18→20:07)
[2017-07-05] MEDS: LITHIUM CARBONATE 300 MG TABLET PO SCH ×2 (09:18→20:07)
[2017-07-05] MEDS: PANTOPRAZOLE 40 MG TABLET. PO SCH (09:18)
[2017-07-05] MEDS: busPIRone 15 MG TABLET. PO SCH ×2 (09:18→20:07)
[2017-07-05] MEDS: ASPIRIN ENTERIC COATED 81 MG TABLET.DR. PO SCH (09:18)
[2017-07-05] MEDS: FLUTICASONE 50MCG/NASAL SPRAY 16GM BOTTLE. NS SCH (09:19)
[2017-07-05] MEDS: PYRIDOXINE 50 MG TABLET. PO SCH (09:19)
[2017-07-05] MEDS: NICOTINE 21MG PATCH. TD SCH (09:21)
[2017-07-05 10:54] VITALS: BP 134/89
[2017-07-05 13:42] LABS: LI 0.3 mmol/L (0.6-1.2)
[2017-07-05 15:49] VITALS: BP 140/89
[2017-07-05 18:00] VITALS: BP 139/83
--- NOTE | 2017-07-05 19:14 | PDOC ---
Exam Avtar Demential Exam: Avtar Note: Please also refer to the separate dictated note~for this date of service dictated separately.~Patient seen individually. Discussed the patient with Nursing staff reviewed the chart.~Reviewed interim history and current functioning. Reviewed vital signs,~Labs/ Radiology~and current medications noted below. Continue current treatment with the changes noted in the dictated addendum note Assessment: Vital Signs: Vital Signs Date Time Temp Pulse Resp B/P (MAP) Pulse Ox O2 Delivery O2 Flow Rate FiO2 07/05/17 18:00 98.0 89 18 139/83 (101) 95 Room Air I&O Intake and Output 07/06/17 07:00 Intake Total 2260 ml Balance 2260 ml Intake Oral 2260 ml # Voids 3 # Bowel Movements 1 Labs: Laboratory Tests Test 07/05/17 05:45 07/05/17 06:30 [place] Level 0.3 mmol/L (0.6-1.2) L [place] Last Dose Date 07/04/17 [place] Last Dose Time 2100 White Blood Count 6.9 x10^3/uL (4.0-11.0) Red Blood Count 4.32 x10^6/uL (4.30-5.70) Hemoglobin 14.5 g/dL (13.0-17.5) Hematocrit 41.7 % (39.0-53.0) Mean Corpuscular Volume 97 fL (79-100) Mean Corpuscular Hemoglobin 34 pg (25-35) Mean Corpuscular Hemoglobin Concent 35 g/dL (31-37) Red Cell Distribution Width 13.6 % (11.5-14.5) Platelet Count 281 x10^3/uL (140-400) Neutrophils (%) (Auto) 50 % (31-73) Lymphocytes (%) (Auto) 40 % (24-48) Monocytes (%) (Auto) 8 % (0-9) Eosinophils (%) (Auto) 2 % (0-3) Basophils (%) (Auto) 1 % (0-3) Neutrophils # (Auto) 3.4 x10^3uL (1.8-7.7) Lymphocytes # (Auto) 2.8 x10^3/uL (1.0-4.8) Monocytes # (Auto) 0.6 x10^3/uL (0.0-1.1) Eosinophils # (Auto) 0.1 x10^3/uL (0.0-0.7) Basophils # (Auto) 0.0 x10^3/uL (0.0-0.2) Sodium Level 142 mmol/L (136-145) Potassium Level 3.8 mmol/L (3.5-5.1) Chloride Level 109 mmol/L (98-107) H Carbon Dioxide Level 26 mmol/L (21-32) Anion Gap 7 (6-14) Blood Urea Nitrogen 8 mg/dL (8-26) Creatinine 1.0 mg/dL (0.7-1.3) Estimated GFR (Cockcroft-Gault) 93.9 Glucose Level 110 mg/dL (70-99) H Calcium Level 8.6 mg/dL (8.5-10.1) Current Medications: Meds: Current Medications Potassium Chloride (Klor-Con) 40 meq 1X ONCE PO Last administered on 21:00; Start 07/02/17 at 21:00; Stop 07/02/17 at 21:01; Status DC Quetiapine Fumarate (SEROquel) 900 mg HS PO Last administered on 07/04/17 20: 18; Start 07/03/17 at 00:00 Potassium Chloride (Klor-Con) 40 meq 1X ONCE PO Last administered on 12:11; Start 07/03/17 at 12:00; Stop 07/03/17 at 12:01; Status DC Metoprolol Tartrate (Lopressor) 50 mg BID PO Last administered on 07/03/17 12 :44; Start 07/03/17 at 12:30; Stop 07/03/17 at 16:37; Status DC [place] Carbonate 300 mg BID PO Last administered on 07/05/17 09:18; Start 07/03/17 at 12:30 Non-Formulary Medication 3 tab QHS PO ; Start 07/03/17 at 21:00; Status UNV Nicotine (Nicoderm Cq 21mg) 1 patch DAILY TD Last administered on 07/05/17 09 :21; Start 07/03/17 at 12:30 Albuterol/ Ipratropium (Duoneb) 3 ml TID NEB Last administered on 07/03/17 15 :26; Start 07/03/17 at 14:00; Stop 07/03/17 at 16:58; Status DC Prazosin HCl (Minipress) 1 mg HS PO ; Start 07/03/17 at 21:00; Stop 07/03/17 at 21:00; Status DC Docusate Sodium (Colace) 100 mg BID PO Last administered on 07/05/17 09:18; Start 07/03/17 at 12:30 Acetaminophen (Tylenol) 650 mg PRN Q8HRS PRN PO PAIN / TEMP; Start 07/03/17 at 16:45 Albuterol Sulfate (Ventolin Hfa) 2 puff PRN Q6HRS PRN INH SHORTNESS OF BREATH; Start 07/03/17 at 16:45; Stop 07/03/17 at 16:56; Status DC Aspirin (Aspirin Enteric Coated) 81 mg DAILY PO Last administered on 09:18; Start 07/04/17 at 09:00 Buspirone HCl (Buspar) 15 mg BID PO Last administered on 07/05/17 09:18; Start 07/03/17 at 21:00 Haloperidol (Haldol) 5 mg PRN Q6HRS PRN PO AGITATION; Start 07/03/17 at 16:45 Lorazepam (Ativan) 0.5 mg PRN BID PRN PO ANXIETY / AGITATION Last administered on 07/05/17 10:24; Start 07/03/17 at 16:45 Pyridoxine HCl (Vitamin B-6) 50 mg DAILY PO Last administered on 07/05/17 09: 19; Start 07/04/17 at 09:00 Atorvastatin Calcium (Lipitor) 20 mg QHS PO Last administered on 07/04/17 20: 19; Start 07/03/17 at 21:00 Hydroxyzine Pamoate (Vistaril) 50 mg PRN Q4HRS PRN PO CONGESTION; Start at 17:00 [place] Carbonate 300 mg BID PO ; Start 07/03/17 at 21:00; Stop 07/03/17 at 21 :00; Status DC Fluticasone Propionate (Flonase) 2 spray DAILY NS Last administered on 08:43; Start 07/04/17 at 09:00; Stop 07/04/17 at 15:58; Status DC Nifedipine (Procardia Xl) 30 mg DAILY PO Last administered on 07/05/17 09:18 ; Start 07/04/17 at 09:00 Non-Formulary Medication 2 puff DAILY IH ; Start 07/04/17 at 09:00; Status UNV Pantoprazole Sodium (Protonix) 40 mg DAILYAC PO Last administered on 09:18; Start 07/04/17 at 07:30 Prazosin HCl (Minipress) 2 mg QHS PO Last administered on 07/03/17 20:56; Start 07/03/17 at 21:00; Stop 07/04/17 at 18:47; Status DC Non-Formulary Medication 0.5 tab UD PO ; Start 07/03/17 at 16:45; Stop at 07:13; Status DC Non-Formulary Medication 2 puff DAILY IH ; Start 07/04/17 at 09:00; Stop 07/04 at 09:00; Status DC Albuterol Sulfate (Ventolin) 2.5 mg PRN Q6HRS PRN NEB SHORTNESS OF BREATH; Start 07/03/17 at 17:00 Albuterol/ Ipratropium (Duoneb) 3 ml RTQID NEB Last administered on 07/05/17 16:04; Start 07/03/17 at 20:00 Fluticasone Propionate (Flonase) 2 spray DAILY NS Last administered on 09:19; Start 07/04/17 at 15:58 Prazosin HCl (Minipress) 4 mg QHS PO Last administered on 07/04/17 20:19; Start 07/04/17 at 21:00 Active Scripts Active Reported Tylenol (Acetaminophen) 325 Mg Tablet 2 Tab PO PRN Q8HRS PRN LAST DOSE GIVEN: DATE: TIME: NEXT DOSE DUE: DATE: TIME: Spiriva (Tiotropium [place]) 18 Mcg Cap.w.dev 2 Puff IH DAILY LAST DOSE GIVEN: DATE: TIME: NEXT DOSE DUE: DATE: TIME: Viagra (Sildenafil Citrate) 50 Mg Tablet 0.5 Tab PO UD LAST DOSE GIVEN: DATE: TIME: NEXT DOSE DUE: DATE: TIME: Pyridoxine Hcl 50 Mg Tablet 50 Mg PO DAILY LAST DOSE GIVEN: DATE: TIME: NEXT DOSE DUE: DATE: TIME: Prazosin Hcl 2 Mg Capsule 2 Cap PO QHS LAST DOSE GIVEN: DATE: TIME: NEXT DOSE DUE: DATE: TIME: Omeprazole 20 Mg Capsule.dr 1 Cap PO DAILY LAST DOSE GIVEN: DATE: TIME: NEXT DOSE DUE: DATE: TIME: [place] Respimat (Olodaterol HCl) 4 Gm Mist.inhal 2 Puff IH DAILY LAST DOSE GIVEN: DATE: TIME: NEXT DOSE DUE: DATE: TIME: Nifedipine Er (Nifedipine) 30 Mg Tablet.er 1 Tab PO DAILY LAST DOSE GIVEN: DATE: TIME: NEXT DOSE DUE: DATE: TIME: Asmanex (Mometasone Furoate) 220 Mcg Aer.pow.ba 1 Puff IH BID LAST DOSE GIVEN: DATE: TIME: NEXT DOSE DUE: DATE: TIME: Lorazepam 0.5 Mg Tablet 1 Tab PO PRN BID PRN LAST DOSE GIVEN: DATE: TIME: NEXT DOSE DUE: DATE: TIME: Isoniazid 300 Mg Tablet 300 Mg PO DAILY LAST DOSE GIVEN: DATE: TIME: NEXT DOSE DUE: DATE: TIME: Hydroxyzine Hcl 50 Mg Tablet 50 Mg PO PRN Q4HRS PRN LAST DOSE GIVEN: DATE: TIME: NEXT DOSE DUE: DATE: TIME: Haloperidol 5 Mg Tablet 5 Mg PO PRN Q6HRS PRN LAST DOSE GIVEN: DATE: TIME: NEXT DOSE DUE: DATE: TIME: Buspirone Hcl 15 Mg Tablet 1 Tab PO BID LAST DOSE GIVEN: DATE: TIME: NEXT DOSE DUE: DATE: TIME: Atorvastatin Calcium 40 Mg Tablet 0.5 Tab PO QHS LAST DOSE GIVEN: DATE: TIME: NEXT DOSE DUE: DATE: TIME: Aspirin Ec (Aspirin) 81 Mg Tablet.dr 1 Tab PO DAILY LAST DOSE GIVEN: DATE: TIME: NEXT DOSE DUE: DATE: TIME: Proair Hfa Inhaler (Albuterol Sulfate) 8.5 Gm Hfa.aer.ad 2 Puff INH PRN Q6HRS PRN LAST DOSE GIVEN: DATE: TIME: NEXT DOSE DUE: DATE: TIME: [place] Carbonate 300 Mg Capsule 1 Cap PO BID LAST DOSE GIVEN: DATE: TIME: NEXT DOSE DUE: DATE: TIME: Metoprolol Tartrate 50 Mg Tablet 0.5 Tab PO BID LAST DOSE GIVEN: DATE: TIME: NEXT DOSE DUE: DATE: TIME: Seroquel (Quetiapine Fumarate) 300 Mg Tablet 3 Tab PO QHS LAST DOSE GIVEN: DATE: TIME: NEXT DOSE DUE: DATE: TIME: Diagnosis: Problems: (1) Schizoaffective disorder, chronic condition with acute exacerbation (2) Impulse control disorder (3) Bipolar affective, mixed, sev w/ psych (4) Suicidal ideation (5) Anxiety disorder CLAUDIA FALL MD Jul 05, 2017 19:14
[2017-07-05] MEDS: ATORVASTATIN CALCIUM 20 MG TABLET PO SCH (20:07)
[2017-07-05] MEDS: QUEtiapine 100 MG TABLET. PO SCH (20:07)
[2017-07-05] MEDS: PRAZOSIN 1 MG CAPSULE. PO SCH (20:14)
[2017-07-05] MEDS ORDERED: HALOPERIDOL 2 MG TABLET PO SCH (21:00)
[2017-07-05 23:20] VITALS: BP 138/82
--- NOTE | 2017-07-06 02:05 | CONS ---
DATE OF CONSULTATION: 07/04/2017 This late entry 07/04/2017 covers elements not covered in my initial note of 07/04/2017. I met with the patient the evening of 07/04/2017. Discussed with nursing staff, reviewed the chart. IDENTIFYING DATA: The patient is a 57-year-old Afro-[place] male seen in bed 125 on [facility] for psychiatric consult requested by Dr. Perez on account of the patient's suicidal ideation within the context of his diagnosis of bipolar disorder, depressed. CHIEF COMPLAINT: "Yes, I thought of ending my life. I have hallucinations and sometimes voices tell me to hurt myself or someone else." HISTORY OF PRESENT ILLNESS: The patient has a history of bipolar disorder followed by Dr. Frankel, psychiatrist at the [facility]. He resides [place] and at the time of this admission was positive for cocaine on the drug screen. The patient denies using any drugs recently, but admits that some of his friends could have slipped something into his drugs. He admits to worsening of his bipolar symptoms recently with increased psychotic symptoms, suicidal ideation, no attempt or intent. He also states he hears voices telling him to hurt others. In the past, he has been diagnosed additionally with PTSD. PAST PSYCHIATRIC HISTORY: As noted above. PAST MEDICAL HISTORY: Hyperlipidemia. FAMILY HISTORY: Noncontributory. SOCIAL HISTORY: Positive for drug abuse in the past. Denies any recent usage, but drug screen results with cocaine noted above. He states he is the only living member of his family. Uncles, aunts, parents, siblings have all and he feels quite a void in his life from all of this. Nevertheless, he has the support of the [place] system and lives on the grounds in an apartment. MENTAL STATUS EXAM: The patient was seen individually evening of 07/04/2017, reasonably oriented and cooperative. Speech coherent, abstraction fair, computation impaired, attention span short, language function intact, admits to intermittent hallucinations, appears somewhat paranoid, depressed. Denies active suicidal or homicidal ideation. Attention span short. Language function intact. LABORATORY DATA: Reviewed. IMPRESSION: Bipolar 1 disorder, mixed with psychotic features; anxiety disorder, unspecified; history of cocaine abuse. Rest as above. PLAN: The patient is currently on lithium carbonate 300 mg twice a day, Haldol 5 mg q. 6 hours p.r.n. psychosis, BuSpar 15 mg twice a day, Ativan 0.5 mg twice a day p.r.n., prazosin 2 mg at bedtime, Seroquel 900 mg at bedtime, and lithium level was 0.1, probably consequent to noncompliance. He has been back on the regular dosage of lithium. We will check another level morning of 07/05/2017, increase prazosin from 2 mg at bedtime to 4 mg at bedtime on account of his ongoing insomnia, consider adding scheduled Haldol if psychotic symptoms persist and the lithium level is therapeutic. The patient would preferably need inpatient psychiatric care and he is being screened by the [facility], they are making arrangements for a transfer. Dr. Perez, thank you for the opportunity to participate in your patient's care. We will follow with you. MAN Danni FALL MD DR: [place]/rachel JOB#: [id number] / [id number]
[2017-07-06] MEDS: IPRATRPIUM/ALBUTEROL 0.5/2.5MG 3 ML NEBU. NEB SCH ×4 (05:00→20:29)
[2017-07-06 06:17] VITALS: BP 133/86
[2017-07-06] MEDS: NON FORMULARY ITEM (Olodaterol HCl (Striverdi Respimat) 2 PUFF) IH SCH (08:49)
[2017-07-06] MEDS: busPIRone 15 MG TABLET. PO SCH ×2 (08:54→20:50)
[2017-07-06] MEDS: FLUTICASONE 50MCG/NASAL SPRAY 16GM BOTTLE. NS SCH (08:54)
[2017-07-06] MEDS: DOCUSATE SODIUM 100 MG CAPSULE PO SCH ×2 (08:54→20:50)
[2017-07-06] MEDS: PANTOPRAZOLE 40 MG TABLET. PO SCH (08:54)
[2017-07-06] MEDS: LITHIUM CARBONATE 300 MG TABLET PO SCH ×2 (08:55→20:50)
[2017-07-06] MEDS: ASPIRIN ENTERIC COATED 81 MG TABLET.DR. PO SCH (08:55)
[2017-07-06] MEDS: NICOTINE 21MG PATCH. TD SCH (08:55)
[2017-07-06] MEDS: PYRIDOXINE 50 MG TABLET. PO SCH (08:56)
--- NOTE | 2017-07-06 10:10 | PN ---
DATE: 07/05/2017 PSYCHIATRIC PROGRESS NOTE This note covers elements not covered in my initial note of 07/05/2017. The patient is seen individually evening of 07/05/2017. Discussed with nursing staff, reviewed the chart. Apparently attempts have been made to place the patient in an inpatient facility, but nothing has come through so far. The patient has occasional visual hallucinations per nursing report, he felt he could see aliens in the computer and during the individual visit, he said occasionally he has some vague auditory hallucinations, but most of these are much improved according to him. REVIEW OF SYSTEMS: On review of his records, he was positive for cocaine on admission and this could have triggered some of the psychosis. He states as an outpatient, Dr. Frankel, his psychiatrist had prescribed Haldol 5 mg p.r.n. for him, which would help him quite a bit with the psychosis. No CV, , pulmonary, eye, ENT system symptoms on review. MENTAL STATUS EXAM: Reasonably oriented. Speech coherent, abstraction fair, computation reasonable, language function intact. No suicidal ideation at this time. I questioned him directly on this and he states he does not have any suicidal ideation whatsoever. Attention span short. Language function intact. He was quite animated, verbal as he talked about his living arrangement at the [facility] and how there are drugs and prostitutes in that building and the cane packer said she would "clean it up." IMPRESSION: Schizoaffective disorder, bipolar type, mixed, in partial remission; anxiety disorder, unspecified; cocaine abuse per urine drug screen. Rest unchanged. PLAN: Continue the patient's current psychotropics including Seroquel 900 mg at bedtime, Ativan p.r.n., lithium carbonate 300 mg b.i.d., level is 0.3, which is better than 0.1 on 07/02/2017, prazosin 4 mg at bedtime. We will start scheduled Haldol 5 mg p.o. at bedtime. If the patient is stable overnight, does not have any recurrence of hallucinations or suicidal ideation perhaps he may return back to his apartment for outpatient followup at the [place]. We will have to see how he does overnight for now. He should certainly get an outpatient followup with Dr. Frankel early in the week next week if he were to return to his apartment. MAN Danni FALL MD DR: Deangelo JOB#: [id number] / [id number]
--- NOTE | 2017-07-06 11:03 | PN ---
DATE: 07/05/2017 PROBLEMS: 1. Suicidal ideation. 2. Bipolar disorder. 3. Noncompliant with medications. 4. Schizoaffective disorder. 5. Posttraumatic stress disorder. 6. Chronic obstructive pulmonary disease. 7. Cocaine abuse. 8. Tobacco use disorder. We are continuing to wait for placement and that has been unsuccessful so far, though the director of casework has reached out to the [place] who evidently is well familiar with him. His neonatal social worker from the [place] did call him, but no placement has been found as of 12:25 today. He remains in his room. He will get up and walk around. He remains acutely depressed. OBJECTIVE: VITAL SIGNS: Blood pressure 134/89, pulse 90, temperature 98.1, respirations 19, pulse ox 95% on room air. His lithium level was 0.1. The patient admits to not taking it since 3 days after the last admission to the [facility] hospital. PLAN: The patient did see ____ last night. He is probably not a good candidate for the [facility], but multiple send outs to other facilities have been done and still we are in a waiting game. RICH FARRIS DO DR: BRYAN/rachel JOB#: [id number] / [id number]
--- NOTE | 2017-07-06 11:54 | PDOC ---
Exam Avtar Demential Exam: Avtar Note: Please also refer to the separate dictated note~for this date of service dictated separately.~Patient seen individually. Discussed the patient with Nursing staff reviewed the chart.~Reviewed interim history and current functioning. Reviewed vital signs,~Labs/ Radiology~and current medications noted below. Continue current treatment with the changes noted in the dictated addendum note Assessment: Vital Signs: Vital Signs Date Time Temp Pulse Resp B/P (MAP) Pulse Ox O2 Delivery O2 Flow Rate FiO2 07/06/17 11:52 98 Room Air 07/06/17 08:56 77 133/86 07/06/17 06:17 98.0 18 I&O Intake and Output 07/07/17 07:00 Intake Total 240 ml Balance 240 ml Intake Oral 240 ml Current Medications: Meds: Current Medications Potassium Chloride (Klor-Con) 40 meq 1X ONCE PO Last administered on 21:00; Start 07/02/17 at 21:00; Stop 07/02/17 at 21:01; Status DC Quetiapine Fumarate (SEROquel) 900 mg HS PO Last administered on 07/05/17 20: 07; Start 07/03/17 at 00:00 Potassium Chloride (Klor-Con) 40 meq 1X ONCE PO Last administered on 12:11; Start 07/03/17 at 12:00; Stop 07/03/17 at 12:01; Status DC Metoprolol Tartrate (Lopressor) 50 mg BID PO Last administered on 07/03/17 12 :44; Start 07/03/17 at 12:30; Stop 07/03/17 at 16:37; Status DC [place] Border Carbonate 300 mg BID PO Last administered on 07/06/17 08:55; Start 07/03/17 at 12:30 Non-Formulary Medication 3 tab QHS PO ; Start 07/03/17 at 21:00; Status UNV Nicotine (Nicoderm Cq 21mg) 1 patch DAILY TD Last administered on 07/06/17 08 :55; Start 07/03/17 at 12:30 Albuterol/ Ipratropium (Duoneb) 3 ml TID NEB Last administered on 07/03/17 15 :26; Start 07/03/17 at 14:00; Stop 07/03/17 at 16:58; Status DC Prazosin HCl (Minipress) 1 mg HS PO ; Start 07/03/17 at 21:00; Stop 07/03/17 at 21:00; Status DC Docusate Sodium (Colace) 100 mg BID PO Last administered on 07/06/17 08:54; Start 07/03/17 at 12:30 Acetaminophen (Tylenol) 650 mg PRN Q8HRS PRN PO PAIN / TEMP; Start 07/03/17 at 16:45 Albuterol Sulfate (Ventolin Hfa) 2 puff PRN Q6HRS PRN INH SHORTNESS OF BREATH; Start 07/03/17 at 16:45; Stop 07/03/17 at 16:56; Status DC Aspirin (Aspirin Enteric Coated) 81 mg DAILY PO Last administered on 08:55; Start 07/04/17 at 09:00 Buspirone HCl (Buspar) 15 mg BID PO Last administered on 07/06/17 08:54; Start 07/03/17 at 21:00 Haloperidol (Haldol) 5 mg PRN Q6HRS PRN PO AGITATION; Start 07/03/17 at 16:45 Lorazepam (Ativan) 0.5 mg PRN BID PRN PO ANXIETY / AGITATION Last administered on 07/05/17 10:24; Start 07/03/17 at 16:45 Pyridoxine HCl (Vitamin B-6) 50 mg DAILY PO Last administered on 07/06/17 08: 56; Start 07/04/17 at 09:00 Atorvastatin Calcium (Lipitor) 20 mg QHS PO Last administered on 07/05/17 20: 07; Start 07/03/17 at 21:00 Hydroxyzine Pamoate (Vistaril) 50 mg PRN Q4HRS PRN PO CONGESTION; Start at 17:00 [place] Carbonate 300 mg BID PO ; Start 07/03/17 at 21:00; Stop 07/03/17 at 21 :00; Status DC Fluticasone Propionate (Flonase) 2 spray DAILY NS Last administered on 08:43; Start 07/04/17 at 09:00; Stop 07/04/17 at 15:58; Status DC Nifedipine (Procardia Xl) 30 mg DAILY PO Last administered on 07/06/17 08:56 ; Start 07/04/17 at 09:00 Non-Formulary Medication 2 puff DAILY IH ; Start 07/04/17 at 09:00; Status UNV Pantoprazole Sodium (Protonix) 40 mg DAILYAC PO Last administered on 08:54; Start 07/04/17 at 07:30 Prazosin HCl (Minipress) 2 mg QHS PO Last administered on 07/03/17 20:56; Start 07/03/17 at 21:00; Stop 07/04/17 at 18:47; Status DC Non-Formulary Medication 0.5 tab UD PO ; Start 07/03/17 at 16:45; Stop at 07:13; Status DC Non-Formulary Medication 2 puff DAILY IH ; Start 07/04/17 at 09:00; Stop 07/04 at 09:00; Status DC Albuterol Sulfate (Ventolin) 2.5 mg PRN Q6HRS PRN NEB SHORTNESS OF BREATH; Start 07/03/17 at 17:00 Albuterol/ Ipratropium (Duoneb) 3 ml RTQID NEB Last administered on 07/06/17 11:52; Start 07/03/17 at 20:00 Fluticasone Propionate (Flonase) 2 spray DAILY NS Last administered on 08:54; Start 07/04/17 at 15:58 Prazosin HCl (Minipress) 4 mg QHS PO Last administered on 07/05/17 20:14; Start 07/04/17 at 21:00 Haloperidol (Haldol) 2 mg HS PO Last administered on 07/05/17 20:07; Start 07/05/17 at 21:00 Active Scripts Active Reported Tylenol (Acetaminophen) 325 Mg Tablet 2 Tab PO PRN Q8HRS PRN LAST DOSE GIVEN: DATE: TIME: NEXT DOSE DUE: DATE: TIME: Spiriva (Tiotropium [place]) 18 Mcg Cap.w.dev 2 Puff IH DAILY LAST DOSE GIVEN: DATE: TIME: NEXT DOSE DUE: DATE: TIME: Viagra (Sildenafil Citrate) 50 Mg Tablet 0.5 Tab PO UD LAST DOSE GIVEN: DATE: TIME: NEXT DOSE DUE: DATE: TIME: Pyridoxine Hcl 50 Mg Tablet 50 Mg PO DAILY LAST DOSE GIVEN: DATE: TIME: NEXT DOSE DUE: DATE: TIME: Prazosin Hcl 2 Mg Capsule 2 Cap PO QHS LAST DOSE GIVEN: DATE: TIME: NEXT DOSE DUE: DATE: TIME: Omeprazole 20 Mg Capsule.dr 1 Cap PO DAILY LAST DOSE GIVEN: DATE: TIME: NEXT DOSE DUE: DATE: TIME: Striverdi Respimat (Olodaterol HCl) 4 Gm Mist.inhal 2 Puff IH DAILY LAST DOSE GIVEN: DATE: TIME: NEXT DOSE DUE: DATE: TIME: Nifedipine Er (Nifedipine) 30 Mg Tablet.er 1 Tab PO DAILY LAST DOSE GIVEN: DATE: TIME: NEXT DOSE DUE: DATE: TIME: Asmanex (Mometasone Furoate) 220 Mcg Aer.pow.ba 1 Puff IH BID LAST DOSE GIVEN: DATE: TIME: NEXT DOSE DUE: DATE: TIME: Lorazepam 0.5 Mg Tablet 1 Tab PO PRN BID PRN LAST DOSE GIVEN: DATE: TIME: NEXT DOSE DUE: DATE: TIME: Isoniazid 300 Mg Tablet 300 Mg PO DAILY LAST DOSE GIVEN: DATE: TIME: NEXT DOSE DUE: DATE: TIME: Hydroxyzine Hcl 50 Mg Tablet 50 Mg PO PRN Q4HRS PRN LAST DOSE GIVEN: DATE: TIME: NEXT DOSE DUE: DATE: TIME: Haloperidol 5 Mg Tablet 5 Mg PO PRN Q6HRS PRN LAST DOSE GIVEN: DATE: TIME: NEXT DOSE DUE: DATE: TIME: Buspirone Hcl 15 Mg Tablet 1 Tab PO BID LAST DOSE GIVEN: DATE: TIME: NEXT DOSE DUE: DATE: TIME: Atorvastatin Calcium 40 Mg Tablet 0.5 Tab PO QHS LAST DOSE GIVEN: DATE: TIME: NEXT DOSE DUE: DATE: TIME: Aspirin Ec (Aspirin) 81 Mg Tablet.dr 1 Tab PO DAILY LAST DOSE GIVEN: DATE: TIME: NEXT DOSE DUE: DATE: TIME: Proair Hfa Inhaler (Albuterol Sulfate) 8.5 Gm Hfa.aer.ad 2 Puff INH PRN Q6HRS PRN LAST DOSE GIVEN: DATE: TIME: NEXT DOSE DUE: DATE: TIME: [place] Carbonate 300 Mg Capsule 1 Cap PO BID LAST DOSE GIVEN: DATE: TIME: NEXT DOSE DUE: DATE: TIME: Metoprolol Tartrate 50 Mg Tablet 0.5 Tab PO BID LAST DOSE GIVEN: DATE: TIME: NEXT DOSE DUE: DATE: TIME: Seroquel (Quetiapine Fumarate) 300 Mg Tablet 3 Tab PO QHS LAST DOSE GIVEN: DATE: TIME: NEXT DOSE DUE: DATE: TIME: Diagnosis: Problems: (1) Schizoaffective disorder, chronic condition with acute exacerbation (2) Impulse control disorder (3) Bipolar affective, mixed, sev w/ psych (4) Suicidal ideation (5) Anxiety disorder CLAUDIA FALL MD Jul 06, 2017 11:54
--- NOTE | 2017-07-06 12:15 | PN ---
DATE: 07/05/2017 ADDENDUM On further review, the patient is on lithium carbonate and instead of starting scheduled Haldol 5 mg p.o. at bedtime, we will start it at 2 mg p.o. at bedtime to avoid drug-drug interaction with increased propensity for EPS with the lithium. MAN Danni FALL MD DR: LA/rachel JOB#: [id number] / [id number]
[2017-07-06 19:50] VITALS: BP 94/60
[2017-07-06] MEDS: QUEtiapine 100 MG TABLET. PO SCH (20:49)
[2017-07-06] MEDS: ATORVASTATIN CALCIUM 20 MG TABLET PO SCH (20:50)
[2017-07-06] MEDS ORDERED: HALOPERIDOL 2 MG TABLET PO SCH (21:00)
[2017-07-06] MEDS: PRAZOSIN 1 MG CAPSULE. PO SCH (23:12)
[2017-07-06 23:31] VITALS: BP 145/95
--- NOTE | 2017-07-07 02:27 | PN ---
DATE: 07/06/2017 PSYCHIATRIC PROGRESS NOTE This note covers elements not covered in my initial note of 07/06/2017. SUBJECTIVE: The patient was seen individually, discussed with nursing staff and discussed with Dr. Perez who was on the unit as well. Overall, the patient is doing somewhat better. He denies any active suicidal ideation, but states he ____, but knows they are not real but he still hears some mumbling voices but no command hallucinations. REVIEW OF SYSTEMS: No CV, , pulmonary, eye system symptoms on review. MENTAL STATUS EXAM: Reasonably oriented. Speech is coherent, abstraction fair, computation reasonable, language function intact. Attention span somewhat short. He is quite open ____ forthcoming. No suicidal or homicidal ideation. LABORATORY DATA: Reviewed. IMPRESSION: Unchanged from the initial note. PLAN: We will increase the Haldol from 2 mg at bedtime to 5 mg at bedtime. Maintain the rest of the psychotropics as mentioned in my initial note. Reviewed drug interactions. Risk/benefit ratio favors no further change. If the patient remains stable overnight, perhaps he can be transitioned to outpatient at the [facility] starting Saturday or if he is stable during the day on Saturday good for discharge to home, to follow up at the [facility] outpatient [place] on Saturday with Dr. Frankel, his psychiatrist. CLAUDIA FALL MD DR: LA/rachel JOB#: [id number] / [id number]
[2017-07-07] MEDS: IPRATRPIUM/ALBUTEROL 0.5/2.5MG 3 ML NEBU. NEB SCH (05:50)
[2017-07-07 06:26] VITALS: BP 122/85
[2017-07-07] MEDS: busPIRone 15 MG TABLET. PO SCH (08:38)
[2017-07-07] MEDS: PANTOPRAZOLE 40 MG TABLET. PO SCH (08:38)
[2017-07-07] MEDS: FLUTICASONE 50MCG/NASAL SPRAY 16GM BOTTLE. NS SCH (08:38)
[2017-07-07] MEDS: ASPIRIN ENTERIC COATED 81 MG TABLET.DR. PO SCH (08:39)
[2017-07-07] MEDS: LITHIUM CARBONATE 300 MG TABLET PO SCH (08:39)
[2017-07-07] MEDS: DOCUSATE SODIUM 100 MG CAPSULE PO SCH (08:39)
[2017-07-07] MEDS: NON FORMULARY ITEM (Olodaterol HCl (Striverdi Respimat) 2 PUFF) IH SCH (08:40)
[2017-07-07 08:41] VITALS: BP 122/85
[2017-07-07] MEDS: PYRIDOXINE 50 MG TABLET. PO SCH (08:42)
[2017-07-07] MEDS: NICOTINE 21MG PATCH. TD SCH (08:42)
--- NOTE | 2017-07-07 17:53 | DS ---
DATE OF DISCHARGE: 07/07/2017 DATE OF ADMISSION: 07/03/2017 DATE OF DISCHARGE: 07/07/2017 DISCHARGE DIAGNOSES: 1. Suicidal ideation, resolved. 2. Depression, improved. 3. Bipolar disorder, improved. 4. Noncompliance with medication, now taking. 5. Hypertension. 6. Chronic obstructive pulmonary disease. 7. Schizoaffective disorder. 8. Posttraumatic stress disorder. 9. Cocaine abuse. 10. Tobacco use disorder. HOSPITAL COURSE: A 57-year-old male admitted for suicidal ideation. He had stopped taking all of his medications and wanted to take an overdose of lithium. Attempts to have him placed at any psychiatric hospitals were not successful except yesterday was willing to take him and he was not willing to go there. He had much improved since then with the intervention of Dr. Broderick and in addition of Haldol, which would helped his visual and auditory hallucinations. On the day of discharge, he was amazingly in much better spirits and was hopeful that he would be able to do something productive, rather than just sitting around in his apartment. He was given information on our counseling on aging and seemed quite helpful. Discharge blood pressure was 122/85, pulse 87, respirations 18, pulse ox 96% on room air, temperature 98.1. Plan is to discharge home, appropriate prescriptions were given if they did not have. He was strongly encouraged to continue with his medications, strongly encouraged to get involved in something on the outside rather than just sitting around his apartment. He will follow up with his regular care providers as well. RICH FARRIS DO DR: BRYAN/rachel JOB#: [id number] / [id number]
--- NOTE | 2017-07-08 11:40 | PN ---
DATE: 07/06/2017 PROBLEMS: Include: 1. Schizoaffective disorder, chronic condition with acute exacerbation. 2. Impulse control disorder. 3. Bipolar disorder, mixed, severe with psychosis. 4. Suicidal ideation. 5. Anxiety disorder. SUBJECTIVE: Remains in the hospital as there have not been any available beds. There may be a bed available ____; however, he is not desirous to go there. He has seen Dr. Broderick, who has started him on Haldol, which has significantly helped his auditory and visual hallucinations ____ mumbling now. Dr. Broderick would like to keep him in the hospital at least until tomorrow to see if the hallucinations can be tampered down even more before letting him go. He is much improved mood maynard. No longer suicidal and making plans to continue to take his medications as an outpatient and do something useful other than sitting around his apartment. OBJECTIVE: VITAL SIGNS: Blood pressure 133/86, pulse 77, respirations 18, pulse ox 95% on room air, temp 98. ASSESSMENT: Significant mood improvement, ____ smiling, not sitting up, eating his lunch, calm and cooperative and appropriate. PLAN: Dr. Broderick has increased his Haldol to 5 mg tonight and we will plan on discharging him tomorrow. RICH FARRIS DO DR: BRYAN/rachel JOB#: [id number] / [id number]
== END 2017-07-07 11:00 | disposition home or self-care (01) | DRG 885 ==
LOC: ER 19:02 → ICU 21:06 → 1 SOUTH 07-03 20:48
PROVIDERS: ADMIT Family Medicine; ATTEND Family Medicine
DX: F25.0 Schizoaffective disorder, bipolar type (principal); R45.851 Suicidal ideations; Z91.14 Patient's other noncompliance with medication regimen; E87.6 Hypokalemia; E78.5 Hyperlipidemia, unspecified; F14.10 Cocaine abuse, uncomplicated; F43.10 Post-traumatic stress disorder, unspecified; F63.9 Impulse disorder, unspecified; F12.90 Cannabis use, unspecified, uncomplicated; I10 Essential (primary) hypertension; J44.9 Chronic obstructive pulmonary disease, unspecified; F41.9 Anxiety disorder, unspecified; Z60.2 Problems related to living alone; G47.00 Insomnia, unspecified; Z72.0 Tobacco use; Z91.5 Personal history of self-harm
CPT/HCPCS: 36415; 80048; 80053; 80178; 80307; 81001; 83690; 83735; 84443; 85025; 85610; 85730; 93005; 94640; G0480; J7620; 99285-25; G0479

== ENCOUNTER 2020-08-19 05:38 | Observation (INO) | payer OTHER, MEDICAID ==
[~2020-08-19] VITALS: Ht 170.2 cm; Wt 95.0 kg
[~2020-08-19 05:38] MED LIST: ACET325T9 PO; ALBU2.5V8 INH; ASPI-889 PO; ATOR40TA59 PO; BUSP15TA PO; HALO5TAB PO; HYDR50TA PO; ISON300T9 PO; LITH300C PO; LITH600C PO; LORA0.5T PO; METO50TA6 PO; MOME220A IH; NIFE30TA15 PO; OLOD4MIS2 IH; OMEP20CA16 PO; PRAZ2CAP2 PO; PYRI50TA8 PO; QUET300T5 PO; SILD50TA PO; TIOT18CA IH
--- NOTE | 2020-08-19 06:08 | PHYS DOC ---
Past History Past Medical History: Anxiety, Bipolar, COPD, Depression, Hypertension, Schizophrenia Additional Past Medical Histor: PTSD Past Surgical History: No Surgical History Alcohol Use: Heavy Drug Use: Cocaine, Marijuana Adult General Chief Complaint Chief Complaint: OVERDOSE HPI HPI Patient is a 60-year-old male who presents for ingestion. Reports taking x4 tablets of his prescribed 400 mg Seroquel at proximately 5 AM this morning and attempt to "fall asleep". Spouse subsequently called EMS concern for patient's somnolence and he was subsequently transported to our facility for evaluation. Patient denies any fever or COVID-19 symptoms. Denies any suicidal ideation, states he has not been sleeping well and again, "just wanted to sleep". Denies any headache, chest pain, shortness of breath, abdominal pain, urinary symptoms, gross neurologic changes at this time. Patient is a and has all of his outpatient care provided by the [facility], currently lives at home with spouse in [place] [address]. Review of Systems Review of Systems Fourteen body systems of review of systems have been reviewed. See HPI for pertinent positives and negative responses, other maynard all other systems are negative, non-pertinent or non-contributory Current Medications Current Medications Current Medications Medications (Trade) Dose Ordered Sig/Ian Start Time Stop Time Status Last Admin Dose Admin Sodium Chloride 1,000 ml @ 1,000 mls/hr 1X ONCE 08/19/20 06:30 08/19/20 07:29 08/19/20 06:05 1,000 MLS/HR Allergies Allergies Allergies Coded Allergies Type Severity Reaction Last Updated Verified No Known Drug Allergies 08/19/20 No Physical Exam Physical Exam Constitutional: Well developed, well nourished, no acute distress, non-toxic appearance, somnolent, falls asleep throughout examination requiring repeat physical and verbal stimuli to reorient HENT: Normocephalic, atraumatic, bilateral external ears normal, oropharynx dry, no oral exudates, nose normal. Eyes: PERRLA, EOMI, conjunctiva normal, no discharge. Neck: Normal range of motion, no tenderness, supple, no stridor. Cardiovascular: Heart rate tachycardic, sinus rhythm, no murmurs rubs or gallops Lungs & Thorax: No respiratory distress, no accessory muscle usage, clear to auscultation bilaterally Abdomen: Bowel sounds normal, soft, no tenderness, no masses, no pulsatile masses. Nonsurgical abdomen, no peritoneal signs Skin: Warm, dry, no erythema, no rash. Back: No tenderness, no CVA tenderness. Extremities: No tenderness, no cyanosis, no clubbing, ROM intact, no edema. Neurologic: Alert and oriented X 3, grossly normal motor & sensory function, no focal deficits noted. Psychologic: Unable to fully assess secondary to somnolence Current Patient Data Vital Signs Vital Signs Date Time Temp Pulse Resp B/P (MAP) Pulse Ox O2 Delivery O2 Flow Rate FiO2 08/19/20 05:38 97.6 102 98/64 (75) 88 Lab Results Laboratory Tests Test 08/19/20 06:00 White Blood Count 5.7 x10^3/uL (4.0-11.0) Red Blood Count 4.11 x10^6/uL (4.30-5.70) Hemoglobin 14.0 g/dL (13.0-17.5) Hematocrit 41.2 % (39.0-53.0) Mean Corpuscular Volume 100 fL (79-100) Mean Corpuscular Hemoglobin 34 pg (25-35) Mean Corpuscular Hemoglobin Concent 34 g/dL (31-37) Red Cell Distribution Width 13.8 % (11.5-14.5) Platelet Count 208 x10^3/uL (140-400) Neutrophils (%) (Auto) 55 % (31-73) Lymphocytes (%) (Auto) 37 % (24-48) Monocytes (%) (Auto) 7 % (0-9) Eosinophils (%) (Auto) 0 % (0-3) Basophils (%) (Auto) 1 % (0-3) Neutrophils # (Auto) 3.2 x10^3uL (1.8-7.7) Lymphocytes # (Auto) 2.1 x10^3/uL (1.0-4.8) Monocytes # (Auto) 0.4 x10^3/uL (0.0-1.1) Eosinophils # (Auto) 0.0 x10^3/uL (0.0-0.7) Basophils # (Auto) 0.0 x10^3/uL (0.0-0.2) Sodium Level 142 mmol/L (136-145) Potassium Level 3.8 mmol/L (3.5-5.1) Chloride Level 105 mmol/L (98-107) Carbon Dioxide Level 23 mmol/L (21-32) Anion Gap 14 (6-14) Blood Urea Nitrogen 13 mg/dL (8-26) Creatinine 1.2 mg/dL (0.7-1.3) Estimated GFR (Cockcroft-Gault) 75.2 BUN/Creatinine Ratio 11 (6-20) Glucose Level 124 mg/dL (70-99) Calcium Level 8.9 mg/dL (8.5-10.1) Total Bilirubin 0.3 mg/dL (0.2-1.0) Aspartate Amino Transf (AST/SGOT) 24 U/L (15-37) Alanine Aminotransferase (ALT/SGPT) 22 U/L (16-63) Alkaline Phosphatase 45 U/L (46-116) Troponin I Quantitative < 0.017 ng/mL (0-0.055) Total Protein 7.2 g/dL (6.4-8.2) Albumin 3.7 g/dL (3.4-5.0) Albumin/Globulin Ratio 1.1 (1.0-1.7) Salicylates Level 5.5 mg/dL (2.8-20.0) Salicylate Last Dose Date Unk Salicylate Last Dose Time Unk Acetaminophen Level < 2 mcg/mL (10-30) Acetaminophen Last Dose Date Unk Acetaminophen Last Dose Time Unk Ethyl Alcohol Level 30 mg/dL (0-10) EKG EKG EKG ordered and interpreted by myself at 0557 hrs. as sinus rhythm at 182 bpm, unremarkable intervals with QRS 74 and QTc 466, left axis deviation, left atrial enlargement, no ischemic findings, no STEMI Repeat EKG ordered and interpreted by myself at 0806 hrs. as sinus rhythm at 91 bpm, intervals remarkable for prolonged QTC at 474 in QRS 76, no axis deviation, no acute ischemic findings, no gross changes from initial EKG, no STEMI Radiology/Procedures Radiology/Procedures CHEST AP ONLY INDICATION: Reason: OD / Spl. Instructions: / History: . COMPARISON STUDY: None. FINDINGS: Lungs: Normal lung volume. Mild left basilar opacities. Right apical bullous disease. The tracheobronchial tree and hilar structures are normal. Pleura: No pleural effusion or pneumothorax. Heart and Mediastinum: The cardiomediastinal silhouette is normal. The great vessels of the thorax are normal. IMPRESSION: Mild left basilar opacities, which could represent subsegmental atelectasis, aspiration, or infection. Electronically signed by: Adelfo Lester MD (08/19/2020 6:34 AM) [facility] Heart Score HEART Score for Chest Pain: HEART Score for Chest Pain Response (Comments) Value History Slighlty/Non-Suspicious 0 ECG Normal 0 Age >45 - < 65 1 Risk Factors 1 or 2 Risk Factors 1 Troponin < Normal Limit 0 Total 2 Risk Factors: Risk Factors: DM, Current or recent (<one month) smoker, HTN, HLP, family history of CAD, obesity. Risk Scores: Risk Factors: DM, Current or recent (<one month) smoker, HTN, HLP, family history of CAD, obesity. Course & Med Decision Making Course & Med Decision Making Pertinent Labs and Imaging studies reviewed. (See chart for details) Most likely diagnosis respiratory depression secondary to 1600 mg Seroquel ingestion. Unable to accurately assess if this was intentional versus acciden eric given patient's somnolence. I do not have concern for any concomitant infectious process. He is not fit for discharge home Poison control was contacted immediately on patient presentation. Case was discussed at length. Discussed need for at least 6 to 8-hour observation to monitor GAME AUTHOR and/or respiratory depression with every 2 hour EKGs x3 total Given that patient is continuing to require supplemental oxygen via nasal cannula to maintain oxygen saturations greater than 90% I feel that he would benefit from hospital admission for continued medical management and further psychiatric assessment Patient sees [facility] in outpatient setting, [facility] was contacted about potential transfer. Patient was accepted by Dr. Phelps I updated patient on proposed plan of care and he was amenable, all questions and concerns addressed prior to ER transportation to [facility] in stable co ndition Dragon Disclaimer Dragon Disclaimer This electronic medical record was generated, in whole or in part, using a voice recognition dictation system. Departure Departure: Impression: Primary Impression: Overdose of antipsychotic Additional Impressions: Respiratory depression Bipolar affective, mixed, sev w/ psych Disposition: 02 DC/TRF OTHER SHORT TERM HOS ([facility]) Admitting Physician: Other (Dr. Phelps) Condition: STABLE Referrals: PCP,NO (PCP) Problem Qualifiers DARRON GAMA DO Aug 19, 2020 06:08
--- NOTE | 2020-08-19 06:08 | EKG ---
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
[2020-08-19] MEDS ORDERED: IV NORMAL SALINE 1,000ML 1,000 ML IV ONE (06:30)
--- NOTE | 2020-08-19 06:37 | RAD ---
CHEST AP ONLY INDICATION: Reason: OD / Spl. Instructions: / History: . COMPARISON STUDY: None. FINDINGS: Lungs: Normal lung volume. Mild left basilar opacities. Right apical bullous disease. The tracheobronchial tree and hilar structures are normal. Pleura: No pleural effusion or pneumothorax. Heart and Mediastinum: The cardiomediastinal silhouette is normal. The great vessels of the thorax are normal. IMPRESSION: Mild left basilar opacities, which could represent subsegmental atelectasis, aspiration, or infection. Electronically signed by: Adelfo Lester MD (08/19/2020 6:34 AM) [facility]
[2020-08-19 06:39] LABS: BASO % 1 % (0-3); EOS % 0 % (0-3); HEMATOCRIT 41.2 % (39.0-53.0); LYMPH # 2.1 x10^3/uL (1.0-4.8); LYMPH % 37 % (24-48); MEAN CORPUSCULAR HEMOGLOBIN 34 pg (25-35); MEAN CORPUSCULAR HGB CONC 34 g/dL (31-37); MEAN CORPUSCULAR VOLUME 100 fL (79-100); MONO # 0.4 x10^3/uL (0.0-1.1); MONO % 7 % (0-9); NEUT # 3.2 x10^3uL (1.8-7.7); NEUT % 55 % (31-73); PLATELET COUNT 208 x10^3/uL (140-400); RED BLOOD COUNT 4.11 x10^6/uL (4.30-5.70); RED CELL DISTRIBUTION WIDTH 13.8 % (11.5-14.5); WHITE BLOOD COUNT 5.7 x10^3/uL (4.0-11.0)
[2020-08-19 06:47] LABS: CALCIUM 8.9 mg/dL (8.5-10.1); CREATININE 1.2 mg/dL (0.7-1.3); GFR 75.2; POTASSIUM 3.8 mmol/L (3.5-5.1)
[2020-08-19 06:53] LABS: ALBUMIN 3.7 g/dL (3.4-5.0); ALBUMIN/GLOBULIN RATIO 1.1 (1.0-1.7); TOTAL BILIRUBIN 0.3 mg/dL (0.2-1.0); TOTAL PROTEIN 7.2 g/dL (6.4-8.2)
[2020-08-19 06:54] LABS: ETHANOL 30 mg/dL (0-10); SALIC 5.5 mg/dL (2.8-20.0)
[2020-08-19 06:55] LABS: ACETAMIN < 2 mcg/mL (10-30)
[2020-08-19 08:17] LABS: BARBITURATES NEG (NEG); BENZODIAZEPINES NEG (NEG); CANNABINOIDS NEG (NEG); COCAINE POS (NEG); METHADONE NEG (NEG); OPIATES NEG (NEG); PHENCYCLIDINE NEG (NEG)
[2020-08-19 08:18] LABS: AMPHETAMINE/METHAMPHETAMINE POS (NEG)
--- NOTE | 2020-08-19 09:54 | EKG ---
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
[2020-08-19 11:00] VITALS: BP 121/86
[2020-08-19 15:00] VITALS: BP 138/96
[2020-08-19] MEDS ORDERED: PALI1.5T PO (16:25)
[2020-08-19] MEDS ORDERED: ZOLP5TAB PO (16:25)
[2020-08-19] MEDS ORDERED: METO-239 PO (16:25)
[2020-08-19] MEDS ORDERED: QUET300T5 PO (16:25)
[2020-08-19] MEDS ORDERED: DOCU100C28 PO (16:25)
[2020-08-19] MEDS ORDERED: BUPR300T92 PO (16:25)
[2020-08-19] MEDS ORDERED: NICO2GUM42 BC (16:25)
[2020-08-19] MEDS ORDERED: FAMO20TA5 PO (16:25)
--- NOTE | 2020-08-19 18:00 | NUR ---
Patient arrived to the unit from the ER via EMS on a gurney. Patient is alert and oriented and transferred himself from the gurney to the bed. Patient states he is feeling a little drowsy still and weak and stated he just wants to sleep and rest. Patient is a poor historian with health history and home medications. This RN contacted the [facility] pharmacy to verify and update patients medication list. Patients vital signs are stable EKG QT segment is being monitored. Poison control was contacted due to Seroquel overdose and this RN has been contact with poison control throughout the shift. Although the patient denies any ideations of self harm, patient states he took the extra Seroquel because he was having a hard time falling asleep (patient admits to doing cocaine and meth a couple of days ago and did test positive for cocaine and methamphetamines) the [facility] was contacted for a screening which was conducted and Desiree Hernández the county tax assessor for the [facility] had some concerns about the patient and his safety due to his admission of taking the extra doses of Seroquel. Desiree was also concerned about the patient due to his refusal to give her the contact information for his girlfriend so they could make a safety plan for his discharge. Desiree requested to speak to the attending physician therefore Dr. Freeman contact information was given to her. This RN also called Dr. Freeman to notify him of the situation with the patient and that Desiree would be contacting him in regards to her concerns about the patient. Cherie SWAIN material handler 1st shift has been notified of the current situation regarding the patient.
[2020-08-19] MEDS ORDERED: ACETAMINOPHEN 325 MG TABLET PO PRN (19:00)
[2020-08-19] MEDS ORDERED: ALBUTEROL SULFATE 2.5 MG/3 ML NEBU. INH PRN (19:00)
[2020-08-19] MEDS ORDERED: ZOLPIDEM 5 MG TABLET. PO PRN (19:00)
[2020-08-19] MEDS ORDERED: NICOTINE POLACRILEX GUM 2 MG GUM. BC PRN (19:00)
[2020-08-19] MEDS ORDERED: FAMOTIDINE 20 MG TABLET PO SCH (21:00)
[2020-08-19] MEDS ORDERED: DOCUSATE SODIUM 100 MG CAPSULE PO SCH (21:00)
[2020-08-19] MEDS ORDERED: MOMETASONE FUROATE IH SCH (21:00)
[2020-08-19] MEDS ORDERED: NON FORMULARY ITEM (Paliperidone (Invega) 1 TAB) PO SCH (21:00)
[2020-08-19] MEDS ORDERED: QUETIAPINE FUMARATE PO SCH (21:00)
--- NOTE | 2020-08-19 21:42 | NUR ---
Pt left via Taxi. [facility] had pt sign a saftey plan and this nurse faxed it back to them. Pt verbalizes understanding of POC. Pt's IV out. Pt got into the taxi to go home.
--- NOTE | 2020-08-19 23:22 | HP ---
ADMIT DATE: 08/19/2020 HISTORY OF PRESENT ILLNESS: The patient is a 60-year-old male patient who was brought to the Emergency Room. He reported he took 4 tablets, prescribed 400 mg Seroquel at approximately 5:00 a.m. this morning in an attempt to fall asleep, spouse subsequently called EMS, concerned for patient's somnolence and he was subsequently transported to our facility for evaluation. The patient denies any fever or COVID-19 symptoms. Denied any suicidal ideation. States that he has not been sleeping well and again just wanted to sleep. Denied any headache, chest pain, shortness of breath, abdominal pain, urinary symptoms, and denied any neurological changes. The patient is a , has all of his outpatient care provider at the [facility]. Currently lives at home with his girlfriend at the [facility] apartment. He was extensively investigated and apparently his EKG showed that he was in sinus rhythm at 82 beats per minute, unremarkable intervals with a QRS duration of 74, QT interval of 466, has left axis deviation, left atrial enlargement, nonischemic finding and no ST segment elevation and repeat EKG done at around 8:00 showed that he was continued to be in sinus rhythm at 91 beats per minute interval remarkable for prolonged QTc of 474 and a QRS duration of 76, no other ischemic finding. His chest x-ray was also unremarkable with only mild left basilar opacities, which could represent subsegmental atelectasis. His lab work was unremarkable and was admitted and consultation with the Po[facility] Control [facility] for observation. PAST MEDICAL HISTORY: Significant for posttraumatic stress disorder, hypertension, COPD, and TIA. PAST SURGICAL HISTORY: Unremarkable. ALLERGIES: He has no known drug allergies. MEDICATIONS: He is currently on following medications: He is on isoniazid 300 mg daily. He is on tiotropium bromide for Spiriva 2 puffs once a day, albuterol sulfate 2 puffs every 6 hours. He is on Striverdi Respimat 2 puffs daily, atorvastatin 40 mg at bedtime. He is on sildenafil citrate for Viagra 25 mg as needed. He is on prazosin 2 mg, he takes 4 mg at bedtime, metoprolol tartrate 25 mg twice a day, nifedipine 30 mg once a day, aspirin 81 mg once a day, Tylenol 650 every 8 hours, haloperidol 5 mg every 6 hours as needed, quetiapine fumarate for Seroquel, he gets 300 mg, he takes 900 mg at bedtime, lorazepam 0.5 mg twice a day, buspirone 15 mg twice a day, hydroxyzine 50 mg every 4 hours and lithium carbonate 300 mg twice a day, mometasone furoate ___ for Asmanex 1 puff twice a day, omeprazole 20 mg daily, and pyridoxine 50 mg daily. FAMILY HISTORY: He has 3 brothers, older and because of myocardial infarction, kidney failure, 2 sisters, 1 alive and 1 . His father , but does not know him very well. His mother at age of 67 because of myocardial infarction. SOCIAL HISTORY: Currently lives with his girlfriend, has 1 son. He smokes half to one pack a day. He drinks about a pint of vodka 3 times a week. He uses amphetamine and cocaine. He said that he has not used them for a long time and he met a friend a few days ago and tried again the cocaine and amphetamine. He is currently on Disability. PHYSICAL EXAMINATION: GENERAL: On arrival to the Emergency Room, he looked well and was clearly in no apparent respiratory distress. No pallor, jaundice, cyanosis or thyromegaly. No jugular venous distention. No limb edema. VITAL SIGNS: His heart rate was 102, blood pressure was 98/64, temperature was 97.6, respiratory rate was 16, and oxygen saturation was 98%. When he arrived; however, subsequently, his oxygen saturation improved to 95%. HEAD, EYES, EARS, NOSE AND THROAT: Showed normocephalic, atraumatic. NECK: Supple. HEART: Showed normal first and second heart sounds. No gallop, rub or murmur. CHEST: Clear to auscultation. No crepitation or rhonchi. ABDOMEN: Distended, soft, nontender. No guarding or rigidity. No organomegaly. All hernial orifice intact. Bowel sounds normal. NEUROLOGIC: He was awake, alert, responding appropriately without any motor or sensory deficit, although he was somnolent when he arrived, when I saw him later in the ICU, he was completely alert and oriented to time, place, and person. LABORATORY DATA: Showed his white cell count was 5700, hemoglobin 14, hematocrit 41, MCV 100, and platelet count 208,000 with normal manual differential. His chemistry showed a serum sodium 142, potassium 3.8, chloride 105, bicarbonate 23, anion gap of 14, BUN 13, creatinine 1.2, estimated GFR was 75 mL per minute. His glucose 124, calcium was 8.9. Total bilirubin, AST, ALT, alkaline phosphatase were normal. Total protein 7.2, albumin was 3.7. His urine drug screen was positive for amphetamine, cocaine and alcohol. His chest x-ray showed mild left basilar opacities, which could represent subsegmental atelectasis, aspiration or infection. ASSESSMENT: The patient was admitted for observation. He has 2 EKGs done, the first one showed that his QT interval was 466 and the second one was about an hour later showed a corrected interval of 474. We will contact the Poison Control Center. We will repeat another EKG and if he remains stable, he can be discharged, we will also contact the [facility] as given the amount of Seroquel. He might see whether this is suicidal ideation. ANOOP YI MD DR: ALKA/rachel JOB#: [id number] / [id number]
[2020-08-20] MEDS ORDERED: ASPIRIN ENTERIC COATED 81 MG TABLET.DR. PO SCH (09:00)
[2020-08-20] MEDS ORDERED: METOPROLOL SUCC 24HR ER 25 MG TAB.ER.24H. PO SCH (09:00)
[2020-08-20] MEDS ORDERED: NON FORMULARY ITEM (Olodaterol HCl (Striverdi Respimat) 2 PUFF) IH SCH (09:00)
[2020-08-20] MEDS ORDERED: buPROPion XL 300 MG TAB.ER.24H. PO SCH (09:00)
--- NOTE | 2020-08-21 10:02 | EKG ---
[address] [address] Test Date: 2020-08-19 Test Time: 18:35:24 Pat Name: SAMUEL ENCARNACION Department: Room: [facility] 1 Gender: M Conduit Bender: : 1960 Requested By: ANOOP YI Order Number: [id number] Reading MD: Measurements Intervals [place] Rate: 74 P: 66 [place]: 152 QRS: 27 QRSD: 80 T: 48 QT: 402 QTc: 447 Interpretive Statements SINUS RHYTHM LOW LIMB LEAD VOLTAGE NO SPECIFIC ECG ABNORMALITIES RI6.01 Compared to ECG 08/19/2020 18:34:11 No significant changes
== END 2020-08-19 21:52 | disposition home or self-care (01) ==
LOC: ER 05:38 → ICU 09:54 → INTOOBSV 09:54
PROVIDERS: ADMIT Internal Medicine; ATTEND Internal Medicine
DX: T43.591A Poisoning by other antipsychotics and neuroleptics, accidental (unintentional), initial encounter (principal); I10 Essential (primary) hypertension; J44.9 Chronic obstructive pulmonary disease, unspecified; R06.03 Acute respiratory distress; F17.200 Nicotine dependence, unspecified, uncomplicated; F15.90 Other stimulant use, unspecified, uncomplicated; F14.90 Cocaine use, unspecified, uncomplicated; F41.8 Other specified anxiety disorders; F20.9 Schizophrenia, unspecified; Z86.73 Personal history of transient ischemic attack (TIA), and cerebral infarction without residual deficits; Z86.59 Personal history of other mental and behavioral disorders; Z79.899 Other long term (current) drug therapy
CPT/HCPCS: 36415; 71045; 80053; 80307; 80329; 83735; 84484; 85025; 93005; 96360; 99285; G0378; G0480; J7030; G0379

== ENCOUNTER 2020-12-20 17:45 | Emergency (ER) | payer OTHER, MEDICAID ==
[~2020-12-20] VITALS: Ht 170.2 cm; Wt 97.9 kg
[~2020-12-20 17:45] MED LIST changes: +BUPR300T92 PO; +DOCU100C28 PO; +FAMO20TA5 PO; +METO-239 PO; +NICO2GUM42 BC; +PALI1.5T PO; +QUEtiapine 100 MG TABLET. PO ONE; +ZOLP5TAB PO
[2020-12-20 19:13] LABS: BASO # 0.1 x10^3/uL (0.0-0.2); BASO % 1 % (0-3); EOS # 0.1 x10^3/uL (0.0-0.7); EOS % 1 % (0-3); HEMATOCRIT 43.9 % (39.0-53.0); LYMPH # 2.1 x10^3/uL (1.0-4.8); LYMPH % 24 % (24-48); MEAN CORPUSCULAR HEMOGLOBIN 34 pg (25-35); MEAN CORPUSCULAR HGB CONC 34 g/dL (31-37); MEAN CORPUSCULAR VOLUME 100 fL (79-100); MONO # 1.1 x10^3/uL (0.0-1.1); MONO % 12 % (0-9); NEUT # 5.4 x10^3uL (1.8-7.7); NEUT % 61 % (31-73); PLATELET COUNT 256 x10^3/uL (140-400); RED CELL DISTRIBUTION WIDTH 13.8 % (11.5-14.5); WHITE BLOOD COUNT 8.8 x10^3/uL (4.0-11.0)
--- NOTE | 2020-12-20 19:14 | PHYS DOC ---
Past History Past Medical History: Bipolar, COPD, Depression, Hypertension, Schizophrenia, Other Additional Past Medical Histor: PTSD Past Surgical History: No Surgical History Alcohol Use: Sober Additional Alcohol Information: hx etoh abuse Drug Use: Cocaine, Marijuana Social History Narrative: last used today Adult General Chief Complaint Chief Complaint: SUICIDAL IDEATION HPI HPI Patient is a 60-year-old male with a past medical history significant for schizophrenia, anxiety and depression who presents with a friend to the emergency department for suicidal ideation. Patient states that he and a friend were going to commit suicide together today by drinking Drano. States he been thinking about this for some time. States he has had similar thoughts in the past. States that the only reason he came into the emergency department is because a family member came in, and confronted them and talked him into coming to the ER. Denies any recent travel, illnesses, fevers, chest pain, shortness of breath, abdominal pain, nausea, vomiting. Denies any alcohol or drug use. Denies any homicidal ideation or hallucinations. Review of Systems Review of Systems Review of systems otherwise unremarkable except noted in HPI Allergies Allergies Allergies Coded Allergies Type Severity Reaction Last Updated Verified No Known Drug Allergies 12/20/20 No Physical Exam Physical Exam Constitutional: Well developed, well nourished, no acute distress, non-toxic appearance. [] HENT: Normocephalic, atraumatic, Eyes: PERRLA, conjunctiva normal, no discharge. [] Neck: Normal range of motion, Cardiovascular:Heart rate regular rhythm, no murmur [] Lungs & Thorax: Bilateral breath sounds clear to auscultation [] Abdomen: soft, no tenderness, Skin: Warm, dry, no erythema, no rash. [] Extremities: No tenderness, ROM intact, no edema. [] Neurologic: Alert and oriented X 3, normal motor function, normal sensory function, no focal deficits noted. [] Psychologic: Suicidal ideation and plan. Cooperative. No homicidal ideation. No hallucinations Current Patient Data Vital Signs Vital Signs Date Time Temp Pulse Resp B/P (MAP) Pulse Ox O2 Delivery O2 Flow Rate FiO2 12/20/20 18:20 99.1 75 18 134/79 (97) 97 Room Air EKG EKG [] Radiology/Procedures Radiology/Procedures [] Heart Score C/O Chest Pain: No Risk Factors: Risk Factors: DM, Current or recent (<one month) smoker, HTN, HLP, family history of CAD, obesity. Risk Scores: Risk Factors: DM, Current or recent (<one month) smoker, HTN, HLP, family history of CAD, obesity. 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 Physical exam noted above. Patient alert and oriented. PAT team to evaluate. PAT team called he was appropriate for admission. Laboratory analysis not concerning. Tox analysis not concerning. Patient alert and oriented no acute distress. Patient to be transferred to [facility] in [place]. Discussed all findings with patient and recommended transfer and admission to [place] for continued psychiatric evaluation and treatment. Patient grateful, verbalized understanding and agreed with plan of transfer and admission. [] Dragon Disclaimer Dragon Disclaimer This electronic medical record was generated, in whole or in part, using a voice recognition dictation system. Departure Departure: Impression: Primary Impression: Suicidal ideation Disposition: 65 DC/TRF TO PSYCH HOSP Condition: GOOD Referrals: PCP,NO (PCP) MAGAN GALLAGHER MD Dec 20, 2020 19:14
[2020-12-20 19:19] LABS: GFR 92.9
[2020-12-20 19:33] LABS: ALBUMIN 3.7 g/dL (3.4-5.0); TOTAL BILIRUBIN 0.4 mg/dL (0.2-1.0); TOTAL PROTEIN 7.5 g/dL (6.4-8.2)
[2020-12-20 19:36] LABS: ACETAMIN < 2.0 mcg/mL (10-30)
[2020-12-20 19:37] LABS: ETHANOL < 10 mg/dL (0-10); SALIC 6.1 mg/dL (2.8-20.0)
[2020-12-21] LABS: BARBITURATES NEG (NEG); BENZODIAZEPINES NEG (NEG); CANNABINOIDS NEG (NEG); COCAINE POS (NEG); METHADONE NEG (NEG); OPIATES NEG (NEG); PHENCYCLIDINE NEG (NEG)
[2020-12-21 00:03] LABS: AMPHETAMINE/METHAMPHETAMINE NEG (NEG)
[2020-12-21 00:54] VITALS: BP 153/93
[2020-12-21] MEDS ORDERED: QUEtiapine 100 MG TABLET. PO ONE (01:00)
== END 2020-12-21 01:55 ==
LOC: ER 17:45
DX: R45.851 Suicidal ideations (principal); F20.9 Schizophrenia, unspecified; F41.9 Anxiety disorder, unspecified; F31.9 Bipolar disorder, unspecified; J44.9 Chronic obstructive pulmonary disease, unspecified; I10 Essential (primary) hypertension; F43.10 Post-traumatic stress disorder, unspecified; Z20.822 Contact with and (suspected) exposure to COVID-19
CPT/HCPCS: 36415; 80053; 80307; 80329; 85025; 87426; 99285; C9803; G0480; U0003

== ENCOUNTER 2021-02-16 21:49 | Emergency (ER) | payer OTHER, MEDICAID ==
[~2021-02-16] VITALS: Ht 170.2 cm; Wt 96.2 kg
[~2021-02-16 21:49] MED LIST changes: -QUEtiapine 100 MG TABLET. PO ONE
--- NOTE | 2021-02-16 22:08 | PHYS DOC ---
Past History Past Medical History: Bipolar, COPD, Depression, Hypertension, Schizophrenia, Other Additional Past Medical Histor: PTSD Past Surgical History: No Surgical History Smoking: Cigarettes Alcohol Use: Occasionally Drug Use: Cocaine, Marijuana General Adult EDM: Chief Complaint: WEAKNESS/GENERALIZED HPI: HPI: ".. I just had taken my Seroquel... and usually my BP goes down.. I should have just gone to bed... I am fine now.." Patient is a 60 year old male who presents with above hx and complaints of low blood pressure after takilng his seroquel. This is a common response for him after taking Seroquel. Pt. denies any fever or chills. Patient denies any other illicit drug use tonight. Patient states his symptoms have resolved. Patient has past history of PTSD, hypertension, COPD, TIAs, schizoaffective disorder, insomnia, polysubstance abuse alcohol abuse and anxiet.. Patient denies any travel. Patient denies any specific ill contacts. Patient does continue to smoke. Patient only follows the [facility] for care, . The patient requesting discharge on arrival.. Review of Systems: Review of Systems: Constitutional: Denies fever or chills Eyes: Denies change in visual acuity HENT: Denies nasal congestion or sore throat Respiratory: Denies cough or shortness of breath Cardiovascular: Denies chest pain or edema. Complaints of low blood pressure after taking Seroquel GI: Denies abdominal pain, nausea, vomiting, bloody stools or diarrhea : Denies dysuria Musculoskeletal: Denies back pain or joint pain Integument: Denies rash Neurologic: Denies headache, focal weakness or sensory changes Endocrine: Denies polyuria or polydipsia Lymphatic: Denies swollen glands Psychiatric: Denies depression or anxiety Family History: Family History: Noncontributory to presentation. Has 3 brothers. 1 is from myocardial infarction, and kidney failure. Has had 2 sisters with live one is . Father is but does not know the cause of . Mother at age 67 because of myocardial infarction. Current Medications: Current Meds: See nursing for home meds Allergies: Allergies: Allergies Coded Allergies Type Severity Reaction Last Updated Verified No Known Drug Allergies 12/20/20 No Physical Exam: PE: Constitutional: no acute distress, non-toxic appearance. [] HENT: Normocephalic, atraumatic, bilateral external ears normal, oropharynx moist, no oral exudates, nose normal. [] Eyes: PERRLA, EOMI, conjunctiva normal, no discharge. [] Neck: Normal range of motion, no tenderness, supple, no stridor. [] Cardiovascular:Heart rate regular rhythm, no murmur [, PMI to the left Lungs & Thorax: Bilateral breath sounds clear to auscultation [] Abdomen: Bowel sounds decreased, soft, no tenderness, no masses, no pulsatile masses. No rebound. Skin: Warm, dry, no erythema, no rash. [] Back: No tenderness, no CVA tenderness. [] Extremities: No tenderness, no cyanosis, no clubbing, ROM intact, no edema. [] Neurologic: Alert and oriented X 3, moves all extremities on request, has distal sensory,, no focal deficits noted. No drift. DTRs +2 patella and brachial. Psychologic: Affect , judgement normal, mood normal. [] EKG: EKG: My interpretation EKG shows a sinus rhythm at 77 bpm. Low voltage in limb leads. No findings acute STEMI with contralateral changes. [] Radiology/Procedures: Radiology/Procedures: [] Heart Score: C/O Chest Pain: N/A HEART Score for Chest Pain: HEART Score for Chest Pain Response (Comments) Value History Slighlty/Non-Suspicious 0 ECG Normal 0 Age >45 - < 65 1 Risk Factors 1 or 2 Risk Factors 1 Troponin < Normal Limit 0 Total 2 Risk Factors: Risk Factors: DM, Current or recent (<one month) smoker, HTN, HLP, family history of CAD, obesity. Risk Scores: Score 0 - 3: 2.5% MACE over next 6 weeks - Discharge Home Score 4 - 6: 20.3% MACE over next 6 weeks - Admit for Clinical Observation Score 7 - 10: 72.7% MACE over next 6 weeks - Early Invasive Strategies Course & Med Decision Making: Course & Med Decision Making Pertinent Labs and Imaging studies reviewed. (See chart for details) Patient refused labs. Patient requesting discharge shortly after arrival. Patient use care in taking his Seroquel. and plan on going to bed shortly after he takes it. Patient push fluids. Patient return if any concerns. Patient follow-up primary care. Return) for any concerns. Patient amatory without problems at time of discharge. Impression: 1. Transient hypotension-related to Seroquel ingestion 2. Hypertension (-follow-up hypotension arrival. .) [] [place] Disclaimer: Dragon Disclaimer: This electronic medical record was generated, in whole or in part, using a voice recognition dictation system. Departure Departure: Referrals: PCP,NO (PCP) Omer Disclaimer This chart was dictated in whole or in part using Voice Recognition software in a busy, high-work load, and often noisy Emergency Department environment. It may contain unintended and wholly unrecognized errors or omissions. JOHN MCDANIEL MD Feb 16, 2021 22:08
[2021-02-16] MEDS: IV RINGERS SOLUTION,LACTATED 1,000 ML IV ONE (22:13)
--- NOTE | 2021-02-16 22:46 | EKG ---
[address] [address] Test Date: 2021-02-16 Test Time: 22:36:43 Pat Name: SAMUEL ENCARNACION Department: Room: Gender: M Health Sciences Manager: DYLAN : 1960 Requested By: JOHN MCDANIEL Order Number: [id number] Reading MD: Measurements Intervals [place] Rate: 77 P: 59 [place]: 142 QRS: 1 QRSD: 78 T: 46 QT: 392 QTc: 445 Interpretive Statements SINUS RHYTHM LOW LIMB LEAD VOLTAGE NO SPECIFIC ECG ABNORMALITIES RI6.02 No previous ECG available for comparison
[2021-02-16 23:50] VITALS: BP 108/64
== END 2021-02-17 00:13 | disposition home or self-care (01) ==
LOC: ER 21:49
DX: I95.89 Other hypotension (principal); J44.9 Chronic obstructive pulmonary disease, unspecified; F17.210 Nicotine dependence, cigarettes, uncomplicated; F12.10 Cannabis abuse, uncomplicated; F14.10 Cocaine abuse, uncomplicated
CPT/HCPCS: 93005; 96360; 99283; J7120